=== PATIENT | male | born 1955 | race Caucasian/White ===

== ENCOUNTER 2022-09-11 16:54 | Emergency (ER) | payer OTHER, SELFPAY ==
[2022-09-11 16:56] VITALS: BP 134/86; PULSE 74; RESP 22; TEMP 36.8; O2SAT 95
--- NOTE | 2022-09-11 17:00 | RT.EKG_ITS ---
APPROVED REPORT Exam: Resting ECG Reason for Exam: sob Patient Location: E HR:70 bpm ECG Measurements Heart Rate 70 AXIS AL 219 P 37 QRSd 131 QRS -64 QT 442 T 36 QTc 476 Conclusion Sinus rhythm...normal P axis, V-rate 60- 99 Borderline prolonged AL interval...AL >212, V-rate 50- 90 Right bundle branch block...QRSd>120, terminal axis(90,270)
[2022-09-11 17:59] LABS: Abs Immature Grans 0.02 10^3/uL (0.0-0.06); HGB 15.2 g/dL (13.5-17.5); MCH 28.6 pg (27.0-33.0); MCHC 33.8 % (32.0-36.0); MCV 85 fL (80-95); MPV 9.2 fL (8.0-11.0); Platelet Count 252 10^3/uL (130-400); RBC 5.32 10^6/uL (4.36-5.78); RDW 12.1 % (11.8-14.1); WBC 7.08 10^3/uL (4.4-10.8)
[2022-09-11 18:14] LABS: Absolute Lymphocyte Count 1.91 10^3/uL (1.2-3.4); Absolute Monocyte Count 0.57 10^3/uL (0.1-0.8); Atypical Lymphocytes % 2; Bands % 2; Diff Comment Manual Differential; RBC Morphology Normal
[2022-09-11 18:23] LABS: ALT 25 U/L (16-63); AST 21 U/L (15-37); Albumin 3.7 g/dL (3.4-5.0); Alkaline Phosphatase 92 U/L (46-116); Anion Gap 8.9 mmol/L (3-11); BUN 18 mg/dL (7-18); Bilirubin, Total 0.4 mg/dL (0.2-1.0); CO2 27.1 mmol/L (21.0-32.0); Calcium 8.5 mg/dL (8.5-10.1); Chloride 102 mmol/L (98-107); Estimated GFR 83.52 (mL/min/1.73m2); Glucose 131 mg/dL (74-106); Potassium 3.8 mmol/L (3.5-5.1); Sodium 138 mmol/L (136-145); Total Protein 7.6 g/dL (6.4-8.2); Troponin I < 50 ng/L (<or=60)
[2022-09-11 18:31] LABS: COVID-19 PCR Negative (Negative); Influenza A PCR Negative (Negative); Influenza B PCR Negative (Negative)
[2022-09-11 18:32] LABS: RSV PCR Positive (Negative); Source Nasopharynx
[2022-09-11 18:33] VITALS: TEMP 36.8
[2022-09-11] MEDS: methylPREDNISolone SUCC 125 MG VIAL IVP (18:33)
--- NOTE | 2022-09-11 18:45 | DI.RAD_ITS ---
Exam(s) XR CHEST 2V PA LATERAL EXAM: XR CHEST 2V PA LATERAL CLINICAL HISTORY: cough TECHNIQUE: 2D digital imaging was performed of the chest. Two images were obtained. PA and lateral views were obtained. COMPARISON: No exams were available for comparison FINDINGS: MEDIASTINUM: Normal. HEART: Normal. PULMONARY VASCULATURE: Normal. LUNGS: No focal consolidating infiltrates. PLEURAL SPACE: No pleural effusion or pneumothorax. BONE:Within normal limits for the patient's age. There are old healed left rib fractures. OTHER FINDINGS:Normal. IMPRESSION: No acute pulmonary findings. DATA REPOSITORY: RADIATION DOSE DELIVERED:
--- NOTE | 2022-09-11 18:52 | DI.VRAD_ITS ---
PROCEDURE INFORMATION: Exam: XR Chest Exam date and time: 09/11/2022 6:43 PM Age: 67 years old Clinical indication: Patient HX: Cough x 7days. TECHNIQUE: Imaging protocol: Radiologic exam of the chest. Views: 2 views. COMPARISON: No relevant prior studies available. FINDINGS: Lungs: Chronic interstitial prominence. No consolidation. Pleural spaces: Unremarkable. No pleural effusion. No pneumothorax. Heart/Mediastinum: Unremarkable. No cardiomegaly. Bones/joints: Unremarkable. IMPRESSION: No acute findings. Dictated and Authenticated by: Paramjit Nicole MD. Ordering:ALEX Britt MD
[2022-09-11] MEDS: Albuterol/Ipratropium 3 ML UPD VIAL UPD ×2 (19:01→19:05)
[2022-09-11] MEDS: Normal Saline 500 ML IV (19:03)
--- NOTE | 2022-09-11 19:06 | ED.GENADUL_ITS ---
Discharge Plan Disposition Patient Disposition: Home Condition: Improving Discharge Details Clinical Impression: Asthma exacerbation, Respiratory syncytial virus (RSV) Primary Care Provider: Dolores,Local ED Provider: Balwinder Kaur Home Meds and New Rx's Prescriptions: New benzonatate 200 mg capsule 200 mg PO TID PRN (Reason: cough) Qty: 30 0RF prednisone 20 mg tablet 40 mg PO DAILY Qty: 8 0RF Continued citalopram 10 MG tablet 10 mg PO DAILY omeprazole 20 MG capsule,delayed release(DR/EC) 20 mg PO DAILY Serevent Diskus 1 PUFF blister with device 1 ea Inhalation BID PRN albuterol sulfate [ProAir HFA] 8.5 GM HFA aerosol inhaler 2 puff Inhalation PRN PRN celecoxib [Celebrex] 100 MG capsule 100 mg PO DAILY erythromycin 1 GM ointment 3.5 gm Ophthalmic QID Qty: 1 0RF Rx Instructions: 4/day right eye 5 days aspirin 81 mg Capsule,Delayed Release(Dr/Ec) 81 mg PO DAILY trazodone 50 mg Tablet 50 mg DAILY melatonin 5 mg Tablet 5 mg DAILY Discharge Instructions Instructions: Asthma (ED) Additional Instructions: It is very important during viral illness that you stay well-hydrated and get plenty of rest. Please continue to use your albuterol inhaler 2 puffs every 2-4 hours as needed for chest tightness. Please start the prescribed steroids tomorrow morning and take as directed. If you develop any new or significant worsening of symptoms return to the emergency department for reassessment otherwise follow-up with primary care provider if not improving in the next week. Referrals: Primary Care Provider [Outside] - 1 week (If not improving) Medical Decision Making Patient presenting to the emergency department for chief complaint of cold symptoms for 1 week chest tightness and some wheezing. Patient does state significant history of asthma with daily medication use. Denies any new fever chills, productive cough, and states more that symptoms just are not improving but denies any worsening of condition. Physical exam shows unremarkable HEENT and cardiac exam but patient does have diminished lung sounds throughout with mild expiratory wheezing also throughout nonfocal. Given patient's age we will check labs including EKG along with chest x-ray. I suspect viral illness so we will perform viral pathogen panel. Pending results we will give some fluids, steroids, and DuoNeb Please see physician interpretation for full interpretation of EKG but patient is in sinus rhythm, rate of 70, does have a right bundle vani block but does not meet acute ischemic criteria. Patient does deny any chest pain. Review of labs show an unremarkable CBC with no leukocytosis or shift, CMP is also unremarkable except for glucose of 131, negative troponin. Patient is positive for RSV negative for COVID and influenza. Chest x-ray reviewed along with radiologist interpretation that shows no acute focal infiltrate or cons olidation. Reassessed patient after DuoNeb's and patient had significant improvement and stated almost near resolution of his symptoms. With risk assessment of his lungs he did have diffuse wheezing that remained but did have improved breath sounds. Will place patient on outpatient steroids, continue use of patient's albuterol inhaler that he already has and encourage continued hydration. We will also prescribe benzonatate to see if this helps with patient's cough. He was encouraged to return for new or worsening symptoms otherwise follow-up with primary care provider.. After discussion of diagnosis and plan of care patient has no further needs, questions, or concerns and states clear understanding to return to the emergency department for any worsening symptoms. This documentation was generated using [employer] dictation system, please disregard any oddities of phrase or misspellings. Imaging Data Radiologic Study: Imaging: X-Ray Radiologist's impression: PROCEDURE INFORMATION: Exam: XR Chest Exam date and time: 09/11/2022 6:43 PM Age: 67 years old Clinical indication: Patient HX: Cough x 7days. TECHNIQUE: Imaging protocol: Radiologic exam of the chest. Views: 2 views. COMPARISON: No relevant prior studies available. FINDINGS: Lungs: Chronic interstitial prominence. No consolidation. Pleural spaces: Unremarkable. No pleural effusion. No pneumothorax. Heart/Mediastinum: Unremarkable. No cardiomegaly. Bones/joints: Unremarkable. IMPRESSION: No acute findings. Lab Data Lab results reviewed: Yes I reviewed the patient's lab results. Sign Out No HPI General Mode of arrival: ambulatory . Date/Time Provider Initiated Documentation: 09/11/22 16:56 . Limitations to Documentation: no limitations . Information obtained by: patient and RN notes reviewed . History of Present Illness 67 year old M presents to the emergency department with the chief complaint of cough chest tightness, described as moderate, Quality is described as aching, and is localized to the chest. Patient started experiencing this week(s) (1) and it has been constant. No relieving factors improve symptom(s), No exacerbating factors reported . Patient notes malaise; denies fever/chills. Patient did receive the following treatments prior to arrival, none Related Data Home Medications Medication Instructions Recorded Confirmed albuterol sulfate 90 mcg/actuation 2 puff inhalation PRN PRN 12/16/15 09/11/22 aerosol inhaler (ProAir HFA) celecoxib 100 mg capsule (Celebrex) 100 mg PO DAILY 12/16/15 09/11/22 citalopram 10 mg tablet 10 mg PO DAILY 12/16/15 09/11/22 erythromycin 5 mg/gram (0.5 %) eye 3.5 gm ophthalmic (eye) QID #1 tube 12/16/15 ointment omeprazole 20 mg capsule,delayed 20 mg PO DAILY 12/16/15 09/11/22 release salmeterol 50 mcg/dose blister 1 ea inhalation BID PRN 12/16/15 09/11/22 powder for inhalation (Serevent Diskus) aspirin 81 mg capsule,delayed 81 mg PO DAILY 09/11/22 09/11/22 release benzonatate 200 mg capsule 200 mg PO TID PRN cough #30 caps 09/11/22 melatonin 5 mg tablet 5 mg DAILY 09/11/22 09/11/22 prednisone 20 mg tablet 40 mg PO DAILY #8 tabs 09/11/22 trazodone 50 mg tablet 50 mg DAILY 09/11/22 09/11/22 Previous Rx's Medication Instructions Recorded erythromycin 5 mg/gram (0.5 %) eye 3.5 gm ophthalmic (eye) QID #1 tube 12/16/15 ointment benzonatate 200 mg capsule 200 mg PO TID PRN cough #30 caps 09/11/22 prednisone 20 mg tablet 40 mg PO DAILY #8 tabs 09/11/22 Allergies Allergy/AdvReac Type Severity Reaction Status Date / Time No Known Allergies Allergy Unverified 12/16/15 08:27 General Stated Complaint: SOB EBONY: 3 Review of Systems Constitutional Constitutional: Denies chills, Denies fever(s), Denies headache(s) and Reports malaise ENT Ears, Nose, Mouth, and Throat: Denies dizziness, Denies headache(s), Denies nasal congestion, Denies nasal discharge, Denies sore throat and Denies throat swelling Cardiovascular Cardiovascular: Denies chest pain, Denies syncope and Reports dyspnea Respiratory Respiratory: Reports as per HPI, Reports chest congestion, Reports cough, Denies excessive phlegm production and Reports dyspnea Gastrointestinal Gastrointestinal: Denies abdominal pain, Denies diarrhea, Denies nausea and Denies vomiting Musculoskeletal Musculoskeletal: Denies myalgias Integumentary/Breasts Skin/Breast: Denies rash Neurologic Neurologic: Denies dizziness, Denies syncope and Denies headache(s) Allergic/Immunologic Allergic/Immunologic: Denies throat swelling PFSH All Active Problems (Updated 09/11/22 @ 20:33 by Balwinder Kaur NP) Asthma exacerbation (Acute) Respiratory syncytial virus (RSV) (Acute) Social History Smoking/Tobacco Use Status: Former Tobacco Use Smoking risk assessment performed?: Yes Alcohol Intake: current Alcohol Intake frequency: a few times a week Drug use: Never Substance use type: does not use Do you feel safe at home: Yes Do you feel safe in your relationship?: Yes Exam Const General: cooperative, comfortable and no acute distress Orientation: alert and awake [facility] Head: normal to inspection, normocephalic and atraumatic Ears: hearing grossly normal bilaterally General nose exam: external nose normal Face and sinus: no erythema Mouth: no muffled voice Neck Neck: normal visual inspection, full ROM, no meningeal signs, trachea midline and supple Resp Effort & Inspection: normal respiratory effort, able to speak in complete sentences and cough Quality of cough: dry Auscultation: diminished lung sounds bilaterally throughout and wheezes expiratory wheezes Cardio Rate: regular rate Rhythm: regular rhythm Heart Sounds: S1 normal, S2 normal, normal S1 and S2, no click, no gallops, no murmurs and no rubs Skin General skin exam: no rashes or lesions noted and dry skin (warm) Neuro General: patient alert, patient awake, patient oriented x3, gait normal and moves all extremities Cognition: normal cognition Speech: speech normal Course Vital Signs Vital signs: Vital Signs Temperature 36.8 C 09/11/22 16:56 Pulse 74 09/11/22 16:56 Respiratory Rate 22 09/11/22 16:56 Blood Pressure 134/86 09/11/22 16:56 Pulse Oximetry 95 09/11/22 16:56 Temperature 36.8 C 09/11/22 18:33 Temperature Source Oral 12/13/22 16:56 Pulse 74 09/11/22 16:56 Respiratory Rate 22 09/11/22 16:56 Respiratory Effort Labored 09/11/22 17:14 Respiratory Depth Normal 09/11/22 17:14 Respiratory Pattern Normal 09/11/22 17:14 Blood Pressure 134/86 09/11/22 16:56 Pulse Oximetry 95 09/11/22 16:56 Oxygen Delivery Method Room Air 09/11/22 16:56 Oxygen Flow Rate 0 09/11/22 16:56 Lab/Test Results Lab/Test Results: Laboratory Tests Range/Units 09/11/22 09/11/22 09/11/22 17:24 17:55 17:55 WBC (4.4-10.8) 10^3/uL 7.08 RBC (4.36-5.78) 10^6/uL 5.32 Hgb (13.5-17.5) g/dL 15.2 Hct (40.0-50.0) % 45.0 MCV (80-95) fL 85 MCH (27.0-33.0) pg 28.6 MCHC (32.0-36.0) % 33.8 RDW (11.8-14.1) % 12.1 Plt Count (130-400) 10^3/uL 252 MPV (8.0-11.0) fL 9.2 Immature Gran % 0.0 Neutrophils % 63.0 Band Neutrophils % 2 Lymphocytes % 25.0 Atypical Lymphs % 2 Monocytes % 8.0 Eosinophils % 0.0 Basophils % 0.0 Nucleated RBC % (0.0-0.3) % 0.0 Absolute Neutrophils (1.2-6.7) 10^3/uL 4.60 Absolute Lymphocytes (1.2-3.4) 10^3/uL 1.91 Absolute Monocytes (0.1-0.8) 10^3/uL 0.57 Absolute Eosinophils (0.0-0.7) 10^3/uL 0.00 Absolute Basophils (0.0-0.2) 10^3/uL 0.00 RBC Morphology Normal Sodium (136-145) mmol/L 138 Potassium (3.5-5.1) mmol/L 3.8 Chloride (98-107) mmol/L 102 Carbon Dioxide (21.0-32.0) mmol/L 27.1 Anion Gap (3-11) mmol/L 8.9 BUN (7-18) mg/dL 18 Creatinine (0.70-1.30) mg/dL 1.0 Est GFR (CKD-EPI 2020) (mL/min/1.73m2) 83.52 Glucose (74-106) mg/dL 131 H Calcium (8.5-10.1) mg/dL 8.5 Magnesium (1.8-2.4) mg/dL 2.0 Total Bilirubin (0.2-1.0) mg/dL 0.4 AST (15-37) U/L 21 ALT (16-63) U/L 25 Alkaline Phosphatase (46-116) U/L 92 Troponin I (<or=60) ng/L < 50 Total Protein (6.4-8.2) g/dL 7.6 Albumin (3.4-5.0) g/dL 3.7 COVID-19 Source Nasopharynx SARS-CoV-2 (PCR) (Negative) Negative Influenza Type A (PCR) (Negative) Negative Influenza Type B (PCR) (Negative) Negative RSV (PCR) (Negative) Positive A*
[2022-09-11] MEDS: Benzonatate 100 MG CAP PO (20:37)
[2022-09-11 20:53] VITALS: BP 138/81; PULSE 99; RESP 20; TEMP 37.2; O2SAT 94
== END 2022-09-11 20:55 | disposition home or self-care (01) ==
PROVIDERS: Emergency Provider Nurse Practitioner Family
DX: J45.901 Unspecified asthma with (acute) exacerbation (principal); B97.4 Respiratory syncytial virus as the cause of diseases classified elsewhere; I45.10 Unspecified right bundle-branch block; Z79.82 Long term (current) use of aspirin; Z20.822 Contact with and (suspected) exposure to COVID-19; Z79.899 Other long term (current) drug therapy
CPT/HCPCS: 80053; 87637; 93005; 94640; 96361; 96374; 99284; 71046; 83735; 84484; 85025; 93010; 99285; J2930; J7620

== ENCOUNTER 2023-08-07 11:58 | Emergency (ER) | payer OTHER, SELFPAY ==
[2023-08-07 12:00] VITALS: BP 133/82; PULSE 65; RESP 18; TEMP 36.6; O2SAT 95
--- NOTE | 2023-08-07 12:07 | W.ED.GENAD ---
Discharge Plan Disposition Patient Disposition: Home Condition: Stable Discharge Details Clinical Impression: Biceps tendon rupture Primary Care Provider: Dolores,Local ED Provider: Lino Caro Home Meds and New Rx's Prescriptions: Continued citalopram 10 MG tablet 10 mg PO DAILY omeprazole 20 MG capsule,delayed release(DR/EC) 20 mg PO DAILY Serevent Diskus 1 PUFF blister with device 1 ea Inhalation BID PRN albuterol sulfate [ProAir HFA] 8.5 GM HFA aerosol inhaler 2 puff Inhalation PRN PRN celecoxib [Celebrex] 100 MG capsule 100 mg PO DAILY diazepam 2 mg tablet 2 mg PO DAILY aspirin 81 mg Capsule,Delayed Release(Dr/Ec) 81 mg PO DAILY trazodone 50 mg Tablet 50 mg PO DAILY melatonin 5 mg Tablet 5 mg PO DAILY prednisone 20 mg tablet 40 mg PO DAILY Qty: 8 0RF Discharge Instructions Instructions: Tendon Rupture (ED) Additional Instructions: You were seen in the emergency department for your injury to your bicep days ago throwing something across your yard, there is a palpable defect where the biceps tendon inserts into the antecubital space of the elbow and I think you have a biceps tendon rupture. This would be definitively diagnosed by an MRI ordered by orthopedics had an outpatient visit. We are providing you with a sling to use, you may use this as needed and apply ice to the area for pain relief, you can take Tylenol and ibuprofen as needed for pain. Please remove your sling many times throughout the day to perform pendulum exercises as we discussed. Please return to the emergency department for any severe increase in swelling of your forearm or complete numbness or skin or temperature changes of your forearm. Referrals: [facility] [Provider Group] [facility] [Outside] [facility] [Outside] Discharge Data Discharge Date/Time-TO BE ENTERED AT DEPARTURE: 08/07/23 12:45 Medical Decision Making This dictation utilizes [id number] dictation software and may contain unedited grammatical errors. 68 y/o M, R-hand dominant, presents to ED today with a chief complaint of threw a hose across the yard days ago, felt something give-out- now having pain and weakness in bicep area with mild bruising. Onset and characteristics include days onset, weakened upper arm strength, no focal swelling, no unilateral arm swelling, no petechiae distally, NV intact. Patient has relevant history of R rotator cuff issues. Family and social history: noncontributory. Pertinent exam findings / vital signs include palpable defect at the insertion of the biceps tendon in the antecubital space with possible biceps tendon rupture, this is consistent with where his bruising is any is no signs distal of swelling or vascular pathology, neurovascularly intact in the entire right upper extremity.. Differential / pathologies of concern include Biceps Tendon Rupture, Sprain, NOT Fracture, NOT N/V Compromise, NOT DVT. Diagnostic studies of: -none - palpable defect at tendon insertion, likely needs MRI by orthopaedic visit, [facility] Interventions of: -sling. ED Course: Patient has acute uncomplicated orthopedic injury with systemic involvement, no acute events in ED. Findings not consistent with fracture, DVT, superficial thrombophlebitis, neurovascular compromise. The patient likely has a tendon rupture of the biceps. Disposition of Biceps Tendon Rupture. Assessment/Plan: Counseled the patient on likely biceps tendon rupture and the need for orthopedic visit for definitive diagnosis by MRI. The patient is comfortable with pain and states he was not likely take Tylenol or ibuprofen. Did provide him with a sling but counseled him on removing the sling and performing pendulum exercises many times per day to prevent frozen shoulder.. Patient verbalized understanding of the plan and return to ED criteria and engaged in shared decision making. Medical Records Medical records reviewed: Yes I reviewed the patient's medical records. HPI General Date/Time Provider Initiated Documentation: 08/07/23 12:07. HPI Narrative: 68 year-old male presents to ED today by POV/ambulating with his , [facility], with a chief complaint of R bicep pain, with developing bruise with onset 4-5 days ago after throwing a hose across the yard, felt something give out- but no pain until the next day- concerned he tore something. Quality described as pain with any lifting, weakness to bicep muscle, no radiation to numbness/tingling, unilateral arm swelling, focal nodular swelling, patient endorses chronic R rotator cuff issues. Severity is described as 3-4/10. Palliating factors include nothing specific attempted. Provoking factors include nothing specific. Events leading up to the incident/Associated Symptoms: Patient is R-hand dominant, no history of blood clots. Patient not anticoagulated. Related Data Home Medications Medication Instructions Recorded Confirmed albuterol sulfate 90 mcg/actuation 2 puff inhalation PRN PRN 12/16/15 08/07/23 aerosol inhaler (ProAir HFA) celecoxib 100 mg capsule (Celebrex) 100 mg PO DAILY 12/16/15 08/07/23 citalopram 10 mg tablet 10 mg PO DAILY 12/16/15 08/07/23 omeprazole 20 mg capsule,delayed 20 mg PO DAILY 12/16/15 08/07/23 release salmeterol 50 mcg/dose blister 1 ea inhalation BID PRN 12/16/15 08/07/23 powder for inhalation (Serevent Diskus) aspirin 81 mg capsule,delayed 81 mg PO DAILY 09/11/22 08/07/23 release melatonin 5 mg tablet 5 mg PO DAILY 09/11/22 08/07/23 prednisone 20 mg tablet 40 mg (2 x 20 mg) PO DAILY #8 tabs 09/11/22 08/07/23 trazodone 50 mg tablet 50 mg PO DAILY 09/11/22 08/07/23 diazepam 2 mg tablet 2 mg PO DAILY 08/07/23 08/07/23 Previous Rx's Medication Instructions Recorded prednisone 20 mg tablet 40 mg (2 x 20 mg) PO DAILY #8 tabs 09/11/22 Allergies Allergy/AdvReac Type Severity Reaction Status Date / Time No Known Allergies Allergy Unverified 08/07/23 12:10 General Stated Complaint: Orthopedic EBONY: 4 Review of Systems All systems reviewed & are unremarkable except as noted in HPI and below PFSH All Active Problems (Updated 08/07/23 @ 12:32 by XAVI Han) Biceps tendon rupture (Acute) Social History Smoking/Tobacco Use Status: Former Tobacco Use Smoking risk assessment performed?: Yes Alcohol Intake: current Alcohol Intake frequency: a few times a week Drug use: Never Substance use type: does not use Housing: house Do you feel safe at home: Yes Do you feel safe in your relationship?: Yes Exam Narrative Exam Narrative: GENERAL APPEARANCE: Well-nourished, non-toxic, awake and alert, atraumatic, no acute distress. SKIN: Warm, pink, dry, intact, without rashes/lesions/ulcerations. HEAD: Normocephalic, atraumatic, normal hair distribution for gender/age. EYES: Pupils PERRLA, EOMs intact without nystagmus, normal conjunctiva, no exudates on lids/lashes. ENT: Nares patent, no circumoral cyanosis, no facial swelling NECK: Supple, trachea midline, painless cervical ROM. LUNGS/CHEST: Non-labored respirations, normal A/P diameter, symmetrical expansion, no chest wall deformity HEART (CV/PV): Regular rate, R radial pulse 2+, no peripheral edema, no JVD. ABDOMEN: Soft, non-distended, no guarding. MSK: Normal ROM, no swelling/deformity to bilateral UEs or LEs, moving all extremities without weakness, no cyanosis, spine midline without tenderness, normal curvature. R UE: Tenderness to palpation in the right bicep muscle, there is a palpable defect at the insertion of the biceps tendon at the antecubital space, he has weakness to lifting light objects and some mild bruising at the distal bicep area of the upper arm, there is no significant pain in the forearm, no focal nodular swelling, he is neurovascularly intact in the distal right hand, no signs of superficial thrombophlebitis or DVT of upper extremity. NEURO: Mental Status AAOx4 - alert to person, place, time, events No facial droop, no forehead involvement. Motor: No focal weakness - strength 5/5 in bilateral UEs and LEs, proximal and distal, symmetric. Sensory: sensation intact to light touch globally. Gait normal: patient ambulated without ataxia into ED room. PSYCH: euthymic, cooperative, pleasant, appropriate speech Course Vital Signs Vital signs: Vital Signs Temperature 36.6 C 08/07/23 12:00 Pulse 65 08/07/23 12:00 Respiratory Rate 18 08/07/23 12:00 Blood Pressure 133/82 08/07/23 12:00 Pulse Oximetry 95 08/07/23 12:00 Temperature 36.6 C 08/07/23 12:00 Temperature Source Oral 08/07/23 12:00 Pulse 65 08/07/23 12:00 Respiratory Rate 18 08/07/23 12:00 Blood Pressure 133/82 08/07/23 12:00 Blood Pressure Position Sitting 08/07/23 12:00 Pulse Oximetry 95 08/07/23 12:00 Oxygen Delivery Method Room Air 08/07/23 12:00 Oxygen Flow Rate 0 08/07/23 12:00 Pain Level 0 08/07/23 12:00
== END 2023-08-07 12:45 | disposition home or self-care (01) ==
PROVIDERS: Emergency Provider Physician Assistant
DX: M79.621 Pain in right upper arm (principal); S46.211A Strain of muscle, fascia and tendon of other parts of biceps, right arm, initial encounter
CPT/HCPCS: 99282

== ENCOUNTER 2023-08-20 15:34 | Outpatient (CLI) | payer OTHER, SELFPAY ==
--- NOTE | 2023-08-20 14:30 | DI.RAD_ITS ---
Exam(s) XR ELBOW RT COMPLETE EXAM: XR ELBOW RT COMPLETE CLINICAL HISTORY: RIGHT ELBOW PAIN. TECHNIQUE: 2D digital imaging was performed of the left elbow. Three images were obtained. AP, lat eral and oblique views were obtained. COMPARISON: No exams were available for comparison FINDINGS: BONES: No acute fracture is present. No bony destructive lesion is seen. There is an enthesophyte at the triceps insertion site. JOINTS: The elbow is normally aligned. No joint effusion is seen. Small osteophytes are seen around t he elbow joint. SOFT TISSUE: Normal. IMPRESSION: 1. No acute abnormality. 2. Mild degenerative changes are seen in the elbow. DATA REPOSITORY: RADIATION DOSE DELIVERED:
== END 2023-08-20 15:35 | disposition home or self-care (01) ==
LOC: DIORS 15:34
PROVIDERS: Visit Provider Student in an Organized Health Care Education/Training Program
DX: M25.521 Pain in right elbow (principal)
CPT/HCPCS: 73080

== ENCOUNTER → 2023-08-29 00:59 | Outpatient (CLI) | payer OTHER, SELFPAY ==
--- NOTE | 2023-08-29 07:20 | DI.MRI_ITS ---
Exam(s) MR UPPER JOINT RT WO EXAM: MR UPPER JOINT RT WO CLINICAL HISTORY: ? high-grade distal biceps tendon tear,[id number],S46.211a,traumatic rupt TECHNIQUE: Multiplanar multisequence MRI was performed without intravenous contrast. COMPARISON: CR XR ELBOW RT COMPLETE from 08/20/2023 FINDINGS: MARROW: There is no evidence of fracture, bone contusion, nor ominous osseous lesions. ELBOW JOINT: Is mild amount of increased fluid in the elbow joint.No significant cartilage loss nor o steochondral defect and there is no evidence of loose intra-articular body. There are no osteophytes . EPICONDYLES: No intraosseous signal abnormality in the medial lateral epicondyles. There is mild inc reased signal evident in the common flexor tendon adjacent to the medial epicondyle; may represent el ement of mild epicondylitis. This is subtle. Similar findings are not seen on the opposite-lateral epicondyle side. ULNAR COLLATERAL LIGAMENT: The anterior band which extends from the medial epicondyle to the sublime tubercle of the coronoid process of the ulna is intact. This structure is the strongest ligament in t he elbow and is the main opponent to severe valgus stress. RADIAL COLLATERAL LIGAMENT: Intact TENDONS: There is some intrasubstance signal abnormality in the distal most aspect of the biceps tendon at the insertion upon the radial tuberosity. However, there is no full-thickness tear of this structure. No retraction. The brachialis tendon is intact. The triceps tendon is intact. CUBITAL TUNNEL/ULNAR NERVE: The ulnar nerve appears unremarkable beneath the cubital tunnel retinacul um/ arcuate ligament and posterior to the medial epicondyle. There is no evidence of arthritic spur arising from the epicondyle nor olecranon causing impingement on the ulnar nerve. There is no eviden ce of accessory anconeus muscle causing impingement at this level. There is also no evidence of soft tissue mass nor ganglia on cyst causing impingement at this level. OTHER FINDINGS: Small amount of fluid noted in the olecranon bursa. IMPRESSION: 1. There is some increased signal noted within the distal most biceps tendon at its insertion onto th e radial tuberosity. However, there is is no full-thickness tear/detachment of this structure from t he radial tuberosity insertion site. 2. Mild findings in the common flexor tendon which may indicate mild medial epicondylitis. There is, however, no abnormal intraosseous signal in the medial epicondyle at this level. 3. Mild edema and fluid in the olecranon bursa region. No prominent swelling. No abnormal intraoss eous signal in the olecranon fossa. DATA REPOSITORY:
== END ==
PROVIDERS: Visit Provider Student in an Organized Health Care Education/Training Program
DX: M70.21 Olecranon bursitis, right elbow (principal); M25.521 Pain in right elbow
CPT/HCPCS: 73221

== ENCOUNTER → 2023-09-04 01:32 | Outpatient (CLI) | payer OTHER, SELFPAY ==
--- NOTE | 2023-09-04 08:15 | DI.MRI_ITS ---
Exam(s) MR UPPER JOINT RT WO EXAM: MR UPPER JOINT RT WO CLINICAL HISTORY: ? high-grade distal biceps tendon tear,STRAIN,S46.211A. TECHNIQUE: Multiplanar multisequence MRI was performed. COMPARISON: None. FINDINGS: Exam is limited by patient body habitus. Sagittal images show suboptimal positioning. BONES: There is no fracture or contusion pattern. JOINTS:The acromioclavicular joint shows hypertrophic changes and some fluid within the joint space. Spurring at the undersurface of the acromion the glenohumeral joint shows a small amount of fluid.. TENDONS: Supraspinatus: Full-thickness tear with retraction to the level of the glenoid. Infraspinatus: Unremarkable. Subscapularis: Unremarkable. [place]: Unremarkable. Biceps and [place]: Full-thickness tear with retraction of the biceps tendon with large amount of surr ounding fluid. MUSCLES: Supraspinatus and infraspinatus muscle atrophy. GLENOID LABRUM: Unremarkable on this noncontrast examination. SOFT TISSUES: Unremarkable. OTHER: Subacromial and subdeltoid bursae . IMPRESSION: Full-thickness tear and retraction of the supraspinatus tendon. Full-thickness tear and severe retraction of the biceps tendon with large amount of surrounding flui d. DATA REPOSITORY:
== END ==
PROVIDERS: Visit Provider Student in an Organized Health Care Education/Training Program
DX: M75.121 Complete rotator cuff tear or rupture of right shoulder, not specified as traumatic (principal); S46.211A Strain of muscle, fascia and tendon of other parts of biceps, right arm, initial encounter; X58.XXXA Exposure to other specified factors, initial encounter
CPT/HCPCS: 73221

== ENCOUNTER 2023-12-30 15:23 | Outpatient (CLI) | payer OTHER, SELFPAY ==
--- NOTE | 2023-12-30 10:00 | DI.RAD_ITS ---
Exam(s) XR KNEE RT 3V AP,LAT,LUCY EXAM: XR KNEE RT 3V AP,LAT,LUCY CLINICAL HISTORY: BILATERAL KNEE PAIN. TECHNIQUE: 2D digital imaging was performed of the right knee. Three views obtained. AP, lateral an d PA tunnel views were obtained. COMPARISON: No priors for comparison FINDINGS: BONES: No acute fracture is present. No bony destructive lesion is seen. There is a well corticated d ensity at the superior aspect of the patella. This appears old. JOINTS: There is marked narrowing of the medial femoral tibial joint and moderate narrowing of the pa tellofemoral joint. Osteophytes are seen involving all 3 joint compartments. There is a small joint effusion. SOFT TISSUE: Normal. IMPRESSION: Marked arthrosis of the right knee. DATA REPOSITORY: RADIATION DOSE DELIVERED:
--- NOTE | 2023-12-30 10:00 | DI.RAD_ITS ---
Exam(s) XR KNEE LT 3V AP,LAT,LUCY EXAM: XR KNEE LT 3V AP,LAT,LUCY CLINICAL HISTORY: BILATERAL KNEE PAIN. TECHNIQUE: 2D digital imaging was performed of the left knee. Three images were obtained. AP, late ral and PA tunnel views were obtained. COMPARISON: No priors for comparison FINDINGS: BONES: No acute fracture is present. No bony destructive lesion is seen. JOINTS: There is marked narrowing of the medial femoral tibial joint. There is also marked narrowing of the patellofemoral joint. There osteophytes in all 3 joint compartments. There is a small joint effusion. There is a density superior to the patellofemoral joint which may represent a loose body. SOFT TISSUE: Normal. IMPRESSION: Marked arthrosis of the left knee. DATA REPOSITORY: RADIATION DOSE DELIVERED:
== END 2023-12-30 15:24 | disposition home or self-care (01) ==
LOC: DIORS 15:23
PROVIDERS: Visit Provider Student in an Organized Health Care Education/Training Program
DX: M25.561 Pain in right knee (principal); M25.562 Pain in left knee
CPT/HCPCS: 73562

== ENCOUNTER 2024-03-17 04:59 | Outpatient (CLI) | payer OTHER, SELFPAY ==
[2024-03-17 14:26] LABS: HCT 44.9 % (40.0-50.0); HGB 15.1 g/dL (13.5-17.5); MCH 29.6 pg (27.0-33.0); MCHC 33.6 % (32.0-36.0); MCV 88 fL (80-95); MPV 9.5 fL (8.0-11.0); Platelet Count 278 10^3/uL (130-400); RDW 12.4 % (11.8-14.1); WBC 8.97 10^3/uL (4.4-10.8)
[2024-03-17 15:06] LABS: Anion Gap 6.6 mmol/L (3-11); BUN 15 mg/dL (7-18); CO2 30.4 mmol/L (21.0-32.0); CREATININE 0.9 mg/dL (0.70-1.30); Chloride 105 mmol/L (98-107); Estimated GFR 94.19 (mL/min/1.73m2); Glucose 92 mg/dL (74-106); Potassium 4.2 mmol/L (3.5-5.1); Sodium 142 mmol/L (136-145)
== END 2024-03-17 05:00 | disposition home or self-care (01) ==
LOC: LBO 04:59
PROVIDERS: Visit Provider Student in an Organized Health Care Education/Training Program
DX: M17.0 Bilateral primary osteoarthritis of knee (principal); Z01.818 Encounter for other preprocedural examination
CPT/HCPCS: 36415; 80048; 85027

== ENCOUNTER 2024-03-17 14:40 | Outpatient (CLI) | payer OTHER, SELFPAY ==
--- NOTE | 2024-03-17 13:00 | DI.RAD_ITS ---
Exam(s) XR KNEE LT 1V XR STANDING ALIGNMENT XR KNEE RT 1V EXAM: XR STANDING ALIGNMENT CLINICAL HISTORY: OA BILATERAL KNEES. TECHNIQUE: 2D digital imaging was performed. Standing AP views were performed from the pelvis throu gh the ankles. COMPARISON: CR XR KNEE LT 3V AP,LAT,LUCY from 12/30/2023 CR XR KNEE RT 3V AP,LAT,LUCY from 12/30/2023 CR XR KNEE LT 1V from 03/17/2024 CR XR KNEE RT 1V from 03/17/2024 FINDINGS: BONES: No acute fracture is present. No bony destructive lesion is seen. Leg length discrepancy: The left femoral head projects a few millimeter superior to the right. JOINTS: Knees: Severe narrowing of the medial femoral tibial joint spaces bilaterally. Bilateral carline us angulation. The ankle joints are unremarkable. The hip joints are unremarkable. SOFT TISSUE: Normal. IMPRESSION: Severe degenerative changes of the medial femoral tibial compartments of both knees.. Minimal overall leg length discrepancy. DATA REPOSITORY: RADIATION DOSE DELIVERED:
== END 2024-03-17 14:41 | disposition home or self-care (01) ==
LOC: DIORS 14:46
PROVIDERS: Visit Provider Physician Assistant
DX: M17.0 Bilateral primary osteoarthritis of knee (principal)
CPT/HCPCS: 73560; 77073

== ENCOUNTER 2024-04-01 07:23 | Observation (INO) | payer OTHER, SELFPAY ==
[2024-04-01] VITALS (40 sets, daily range): BP systolic 107–172; BP diastolic 55–89; PULSE 55–94; RESP 15–28; TEMP 35.5–36.7; O2SAT 92–99; BMI 42.0
[2024-04-01] MEDS: Celecoxib 200 MG CAP 400 MG PO (07:56)
[2024-04-01] MEDS: Gabapentin 300 MG CAP PO ×2 (07:56→20:31)
[2024-04-01] MEDS: Acetaminophen 500 MG TAB 1000 MG PO ×3 (07:56→20:30)
[2024-04-01] MEDS: Lactated Ringers 1,000 ML 80 ML IV ×3 (08:07→22:21)
--- NOTE | 2024-04-01 08:27 | ANES.PREOP_ITS ---
General Info Date of Service Date Performed: 04/01/24 Height: 5 ft 7 in Weight: 121.6 kg Body Mass Index (BMI): 42.0 Surgical Procedure: Operation Date: 04/01/24 09:35 Proposed Procedure Side Surgeon p Knee Total Arthroplasty Bilateral, Cementless CR Bilateral Luciano Gilbert MD Meds Allergies and Home Medications Allergies Allergy/AdvReac Type Severity Reaction Status Date / Time atorvastatin Allergy Other (See Verified 04/01/24 07:52 Comment) Home Medication Medication Instructions Recorded albuterol sulfate 90 mcg/actuation 2 puff inhalation PRN PRN 12/16/15 aerosol inhaler (ProAir HFA) omeprazole 20 mg capsule,delayed 20 mg PO DAILY 12/16/15 release trazodone 50 mg tablet 50 mg PO HS 09/11/22 cholecalciferol (vitamin D3) 75 25 mcg PO DAILY 10/08/23 mcg (3,000 unit) tablet carboxymethylcellulose sodium 0.5 1 drp ophthalmic (eye) HS 11/13/23 % eye drops celecoxib 200 mg capsule (Celebrex) 200 mg PO DAILY 11/13/23 fluticasone propionate 50 1 spray intranasal DAILY 11/13/23 mcg/actuation nasal spray,suspension (Allergy Relief (fluticasone)) melatonin 5 mg tablet 10 mg PO HS 11/13/23 cyclobenzaprine 10 mg tablet 10 mg PO HS 12/30/23 gabapentin 300 mg capsule 300 mg PO BID 12/30/23 duloxetine 30 mg capsule,delayed 60 mg PO DAILY 03/17/24 release Current Visit Medications: Current Medications Generic Name Dose Route Start Last Admin Trade Name Fredrickq PRN Reason Stop Dose Admin Acetaminophen 1,000 mg 04/01/24 06:00 Acetaminophen 500 Mg Tab PO 04/01/24 16:00 PREOP [facility] Acetaminophen 1,000 mg 04/01/24 08:30 Acetaminophen 500 Mg Tab PO 05/01/24 08:29 TID PENDING SALE TO [facility] Aspirin 81 mg 04/01/24 20:00 Aspirin E.C. 81 Mg Tabec PO 05/01/24 19:59 BID PENDING SALE TO [facility] Celecoxib 400 mg 04/01/24 06:00 Celecoxib 200 Mg Cap PO 04/01/24 16:00 PREOP [place] Celecoxib 200 mg 04/01/24 20:00 Celecoxib 200 Mg Cap PO 05/01/24 19:59 BID PENDING SALE TO [facility] Dexamethasone 4 mg 04/02/24 08:00 Dexamethasone 4 Mg Tab PO 04/02/24 08:31 DAILY [place] Docusate Sodium 100 mg 04/01/24 07:23 Docusate Sodium 100 Mg Cap PO 05/01/24 07:22 BID PRN PRN Constipation Droperidol 0.625 mg 04/01/24 08:26 Droperidol 5 Mg/2 Ml Vial IVP 05/01/24 08:25 DIRECTED PRN Nausea Ephedrine Sulfate 0 mg 04/01/24 08:26 Ephedrine 25 Mg/5 Ml Syringe IVP 05/01/24 08:25 DIRECTED PRN Fentanyl 0 mcg 04/01/24 08:26 Fentanyl 100 Mcg/2 Ml Vial IVP 05/01/24 08:25 DIRECTED PRN Gabapentin 300 mg 04/01/24 06:00 Gabapentin 300 Mg Cap PO 04/01/24 16:00 PREOP [place] Gabapentin 300 mg 04/01/24 20:00 Gabapentin 300 Mg Cap PO 05/01/24 20:00 HS PENDING SALE TO [facility] Hydromorphone HCl 0 mg 04/01/24 08:26 Hydromorphone 2 Mg/Ml Syr IVP 05/01/24 08:25 DIRECTED PRN Ringer's Solution 1,000 mls @ 80 mls/hr 04/01/24 06:00 IV 04/30/24 23:59 INFUSION PENDING SALE TO [facility] Cefazolin Sodium 3,000 mg/ 100 mls @ 200 mls/hr 04/01/24 06:00 Sodium Chloride IVPB 04/01/24 16:00 PREOP [place] Tranexamic Acid/Sodium Chloride 1,000 mg in 100 mls @ 600 mls/hr 04/01/24 06:00 IVPB 04/01/24 16:00 PREOP [place] Tranexamic Acid/Sodium Chloride 1,000 mg in 100 mls @ 600 mls/hr 04/01/24 06:00 IVPB 04/01/24 16:00 TODAY PENDING SALE TO [facility] Cefazolin Sodium/Dextrose 1 gm in 50 mls @ 100 mls/hr 04/01/24 08:00 Ancef Duplex IVPB 04/02/24 00:29 Q8H [place] IV Miscellaneous Supplies 1 each 04/01/24 06:00 Iv Access IV 04/30/24 23:59 DIRECTED [place] Naloxone HCl 0 mg 04/01/24 08:26 Naloxone 0.4 Mg/Ml Vial IVP 05/01/24 08:25 PRN PRN Ondansetron HCl 4 mg 04/01/24 07:23 Ondansetron 4 Mg/2 Ml Vial IVP 05/01/24 07:22 Q6H PRN PRN Nausea Oxycodone HCl 0 mg 04/01/24 07:23 Oxycodone 5 Mg Tab PO 05/01/24 07:22 Q3H PRN PRN Pain Pantoprazole Sodium 40 mg 04/01/24 07:30 Pantoprazole 40 Mg Tabcr PO 05/01/24 07:29 DAILY@0730 [place] Polyethylene Glycol 17 gm 04/01/24 07:23 Polyethylene Glycol 3350 17 Gm Packet PO 05/01/24 07:22 BID PRN PRN Constipation Sodium Chloride 0 ml 04/01/24 06:00 Normal Saline Flush 10 Ml Syr IV 04/30/24 23:59 PRN PRN Sodium Chloride 0 ml 04/01/24 06:00 Normal Saline 10 Ml Vial IJ 04/30/24 23:59 DIRECTED PRN Sterile Water 0 ml 04/01/24 06:00 Water,Injection,Sterile 10 Ml Vial IJ 04/30/24 23:59 DIRECTED PRN PFSH Active Problems Active Problems: Problem Status Onset Code COPD (chronic obstructive pulmonary disease) J44.9 Arthritis of left knee M17.12 Arthritis of right knee M17.11 SANDRA (obstructive sleep apnea) G47.33 Obesity E66.9 Peripheral neuropathy G62.9 Asthma J45.909 Rupture of right proximal biceps tendon S46.211A Rotator cuff tear, right M75.101 Traumatic rupture of right distal biceps tendon ~08/03/23 S46.211A Medical History Medical History Vitamin D deficiency GERD (gastroesophageal reflux disease) Anxiety Depression Allergic rhinitis Surgical History Surgical History H/O eye surgery bilat Carpal tunnel syndrome on right Fracture of thumb, right, closed History of bariatric surgery (2013) gastric sleeve Tobacco Smoking/Tobacco Use Status: Former Tobacco Use Alcohol Alcohol Intake: current Alcohol intake frequency: a few times a week Substance Use Substance use: Never Substance use type: does not use Vital Signs and Lab Results Vital Signs Most Recent Vital Signs in EMR: Most Recent Vital Signs Temp Pulse Resp BP Pulse Ox 36.4 C L 63 16 126/70 94 04/01/24 07:42 04/01/24 07:42 04/01/24 07:42 04/01/24 07:42 04/01/24 07:42 Lab Results Blood Type / Crossmatch: No Data to Display Complete Blood Count: White Blood Count 8.97 10^3/uL (4.4-10.8) 03/17/24 14:20 Red Blood Count 5.10 10^6/uL (4.36-5.78) 03/17/24 14:20 Hemoglobin 15.1 g/dL (13.5-17.5) 03/17/24 14:20 Hematocrit 44.9 % (40.0-50.0) 03/17/24 14:20 Platelet Count 278 10^3/uL (130-400) 03/17/24 14:20 Complete Metabolic Panel: Sodium 142 mmol/L (136-145) 03/17/24 14:20 Potassium 4.2 mmol/L (3.5-5.1) 03/17/24 14:20 Chloride 105 mmol/L (98-107) 03/17/24 14:20 Carbon Dioxide 30.4 mmol/L (21.0-32.0) 03/17/24 14:20 BUN 15 mg/dL (7-18) 03/17/24 14:20 Creatinine 0.9 mg/dL (0.70-1.30) 03/17/24 14:20 Est GFR (CKD-EPI 2020) 94.19 (mL/min/1.73m2) 03/17/24 14:20 Calcium 9.0 mg/dL (8.5-10.1) 03/17/24 14:20 Glucose 92 mg/dL (74-106) 03/17/24 14:20 Liver Function Panel: No Data to Display Coagulation Panel: No Data to Display Cardiac Panel: No Data to Display Arterial Blood Gas: No Data to Display Venous Blood Gas: No Data to Display Pancreas Panel: No Data to Display Thyroid Panel: No Data to Display Infectious Disease: No Data to Display Blood Cultures: No Data to Display Toxicology Panel: No Data to Display Anesthesia Assessment and Plan Anesthesia History Personal History: No History of Anesthesia Complications Family History: No Family History of Anesthesia Complications Exercise Tolerance Exercise Tolerance: Metabolic Equivalents>4 Pertinent Negatives Pertinent Negatives: No Symptoms of GERD (RX treatment) Cardiac & Pulmonary Exam Cardiac Exam: Normal S1/S2 Heart Sounds Pulmonary Exam: Clear Bilateral Breath Sounds Implantable Cardiac Device Does patient have a Pacemaker or an ICD?: No Airway Exam Known Difficult Airway: No Mallampati Class: 3 Mouth Opening: Normal (> 3cm) Thyromental Distance: Greater than 3 cm Neck Range of Motion: Full ROM Neck Circumference: Thick Teeth Condition: Generalized Poor Dentition ASA Classification ASA Score: ASA 2 Emergency Case?: No NPO Status NPO Status: NPO Clears >2 hours, Solids >8 hours Anesthesia Plan Resuscitation Status: Full Code Anesthesia Technique: Spinal Anesthesia Airway Planned: Natural Airway Pain Management: Surgeon and patient request nerve block Monitors Used: Standard Monitors
[2024-04-01] MEDS: ceFAZolin 3,000 MG in Normal Saline 100 ML 200 MG IVPB (09:25)
[2024-04-01] MEDS: TRANEXAMIC ACID/SOD. CHL. 1,000 MG/100 ML BAG 600 MG IVPB ×2 (09:45→10:50)
--- NOTE | 2024-04-01 10:22 | W.ANESNERVE ---
Nerve Block Single Injection Procedure Date and Time Date Performed: 04/01/24 Procedure Start: 09:01 Location Where Procedure Performed Procedure Location: Day Surgery Unit Reason Performed: Postoperative Analgesia Requesting Provider: Luciano Gilbert Timeout Performed Timeout Performed: Yes Monitoring Used ECG, Blood Pressure, SpO2 and See EMR for corresponding vital signs Sterility Sterility: Hand Hygiene, Surgical Cap, Surgical Mask, Eye Protection and Chlorhexidine Sedation Given During Procedure Sedation Given (Indicate Dose Given): Versed IV Dose:: 3mg IVP Patient Mental Status Patient Mental Status: Sedate with meaningful communication Nerve Block 1st Nerve Block: Laterality: Right Block Type: Adductor Canal Ultrasound Image Saved?: Yes Needle / Catheter Used: 100mm SonoPlex II Local Anesthetic Bolus (Indicate Dose Given): Lidocaine used for local infiltration of skin, Injected in 3-5ml increments after negative blood aspiration, Bupivacaine 0.5% Dose:: 0.5%/15cc (75mg) and Exparel Dose:: 1.33%/5cc (65mg) Additives (Indicate Dose Given): Epinephrine to make 1:200,000 (5mcg/ml) Dose:: 100mcg and Decadron Dose:: 5mg PF Ultrasound: Sterile probe cover and gel used Nerve Stimulator: Not Used Paresthesia: None Procedure Tolerated: No Complications and Patient tolerated well Procedure Outcome: Successful Performed By: Renan Maya 2nd Nerve Block: Laterality: Left Block Type: Adductor Canal Ultrasound Image Saved?: Yes Needle / Catheter Used: 100mm SonoPlex II Local Anesthetic Bolus (Indicate Dose Given): Lidocaine used for local infiltration of skin, Injected in 3-5ml increments after negative blood aspiration, Bupivacaine 0.5% Dose:: 0.5%/15cc (75mg) and Exparel Dose:: 1.33%/5cc (65mg) Additives (Indicate Dose Given): Epinephrine to make 1:200,000 (5mcg/ml) Dose:: 100mcg and Decadron Dose:: 5mg PF Ultrasound: Sterile probe cover and gel used Nerve Stimulator: Not Used Paresthesia: None Procedure Tolerated: No Complications and Patient tolerated well Procedure Outcome: Successful Performed By: Renan Maya
--- NOTE | 2024-04-01 13:43 | W.ANESPOSTOP ---
Postoperative Evaluation Date, Time and Location Date Performed: 04/01/24 Time Performed: 13:44 Patient Location: PACU Vital Signs Most Recent Imported Vital Signs: Most Recent Vital Signs Temp Pulse Resp BP Pulse Ox 36.4 C L 60 26 H 134/78 92 04/01/24 13:30 04/01/24 13:36 04/01/24 13:36 04/01/24 13:36 04/01/24 13:36 Pain Score Most Recent Pain Score: Most Recent Pain Score Pain Level 0 04/01/24 09:09 Assessment Mental Status: Arousable with meaningful communication Airway and Respiratory Function: Patent airway with normal (patient baseline) respiratory exam Cardiovascular Function: Hemodynamically Stable Hydration Status: Adequately Hydrated Nausea & Vomiting: No Nausea or Vomiting Pain: Pain is tolerable per patient Peripheral Nerve Block: Regional nerve block not resolved at time of post operative discharge
--- NOTE | 2024-04-01 15:33 | IN_ITS ---
PT Notes Visit Reasons: B/L TKR Physical Therapy Inpatient Initial Evaluation Date: 04/01/2024 Referring Doctor: XAVI Sousa PT Orders: PT CONSULT: S/P ortho Surgery Precautions: Per Dr. Gilbert, WBAT on BLE with AD. Patient Profile/Admitting Diagnosis: Louie is a 69-year-old male with degenerative joint disease of bilateral knees and is status post bilateral total knee arthroplasties on postoperative day 0. PMHX: Medical History (Updated 03/17/24 @ 13:35 by Melia Horowitz) Vitamin D deficiency GERD (gastroesophageal reflux disease) Anxiety Depression Allergic rhinitis Surgical History (Updated 03/17/24 @ 13:35 by Melia Horowitz) Carpal tunnel syndrome on right Fracture of thumb, right, closed History of bariatric surgery (2013) gastric sleeve Social History/Home Situation: Patient lives with in a private home with 6 steps to enter with a rail. Independent with all mobility ADLs although has had increasing difficulty due to arthritis in B knees. Equipment Owned/DME: None Subjective: Moderate lightheadedness subsided with short in-room ambulation. Objective: General Observation: resting in bed. anusha present in room throughout session. LORENA wraps to B Le. Cryocuff to B knees. Mental Status: Drowsy but oriented as to person, place, time, and purpose. Able to pay attention, focus, and respond appropriately. Pain: Moderate pain in B knees during movement transition Vital Signs: Closely monitored by nursing staff ROM: Right Lower Extremity: Hip flexion WFL. Hip abduction WFL. Knee flexion 20 degrees to 90 degrees. Knee extension -20 degrees. Ankle dorsiflexion WFL. Ankle plantarflexion WFL. Left Lower Extremity: Hip flexion WFL. Hip abduction WFL. Knee flexion 20 degrees to 90 degrees. Knee extension -20 degrees. Ankle dorsiflexion WFL. Ankle plantarflexion WFL. Strength: Right Lower Extremity: Hip flexors 4-/5. Hip abductors 4-/5. Knee flexors 3-/5. Knee extensors 3-/5. Ankle dorsiflexors 4-/5. Ankle plantarflexors 4-/5. Left Lower Extremity: Hip flexors 4-/5. Hip abductors 4-/5. Knee flexors 3-/5. Knee extensors 3-/5. Ankle dorsiflexors 4-/5. Ankle plantarflexors 4-/5. Bed Mobility/Transfers: Moderate cueing provided for use of B hands as needed for support, movement sequence, AD management, and posture to reduce fall risk and minimize pain report Supine to sit minimal assist of 2 with HOB at about 30 degrees, patient reported sudden onset lightheadedness right after sitting up Sit to stand minimal assist of 2 with edge of bed raised about 22 inches form floor, FWW used Stand to sit minimal assist of 1 Bed to reclining chair minimal assist of 2 Gait: 12 steps from edge of bed to bedside recliner using front-wheeld walker with minimal assist of 2, Nurse Jovan assisting with for safety. Step-to gait pattern, gait wide-based, knee flexion on B sides decreased. Moderate cueing provided for safe gait pattern, AD management, and proper weight distribution to minimize pain level. No LOB. No SOB. Lightheadedness did not worsen duirng the short walk and subsided after sitting on bedside recliner. Balance: Static Sitting: Good Dynamic Sitting: Fair Static Standing: Fair Dynamic Standing: Fair Special Tests: Mobility Limitations Standardized Measure [facility] AM-PAC 6 clicks Basic Mobility Inpatient Short Form: Raw Score: 18 CMS Score: 47% deficit Informed Consent/Education: Patient was instructed in purpose of PT consult and plan of care. Agreeable to proceed with established PT POC to achieve personal goals. Trained patient with correct performance of exercises below to maximize motor control, joint flexibility, soft tissue extensibility of the B knee musculature: Access Code: [email or web address] URL: [email or web address] Date: 04/01/2023 Prepared by: Heidi Zeng Exercises - Supine Quad Set - 1 x daily - 7 x weekly - 1 sets - 10 reps - 5 hold - Supine Heel Slide - 1 x daily - 7 x weekly - 1 sets - 10 reps - 5 hold - Supine Ankle Pumps - 1 x daily - 7 x weekly - 1 sets - 10 reps - 5 hold - Small Range Straight Leg Raise - 1 x daily - 7 x weekly - 1 sets - 10 reps - 5 hold DEFERRED due to pain level - Seated November - 1 x daily - 7 x weekly - 1 sets - 10 reps - 5 hold Assessment: Drowsy but managed to complete short mobility assessment. Lightheaded initially but subsided with movement. Needed minimal assist of 2 to get up from edge of bed that was raised about 22 inches from floor to minimize pain in B knees. Patient presents with clinical signs and symptoms consistent with current/admitting diagnoses that have resulted to mobility limitations, gait instability, generalized weakness, and overall ADL decline as demonstrated by the following impairment level findings: 1. Decreased strength to B knee major muscle groups 2. Impaired sitting/standing balance 3. Impaired activity tolerance 4. Limitation of joint range of motion in B knees 5. Pain in B knees Impairments are contributing to the following functional limitations: 1. Decline in bed mobility skills 2. Decline in transfer skills 3. Difficulty with ambulation without assistive device and physical assistance 4. Increased completion time for mobility ADL performance 5. Increased risk for falls 6. Difficulty with managing steps alone safely Patient is assessed as a 52306 moderate complexity based on the following: History: 69-year-old male with past medical history as indicated above Examination: Demonstrable impairment in strength, balance, and mobility level with underlying impairments and functional limitations as exhibited above as well as deficit score of 47% utilizing the [facility] Mobility Inpatient Short Form Presentation: Evolving Decision Makin moderate complexity Goals: Goals X1 week 1. Supine-Sit independent 2. Sit-Supine independent 3. Sit-Stand independent 4. Stand-Sit independent with FWW 5. Bed-Chair independent with FWW 6. Chair-Bed independent with FWW 7. Independent gait on level surface with use of FWW for at least 300 feet without report of pain nor dyspnea 8. Independent stair negotiation while holding onto 1 rails for at least 6 steps without report of pain nor dyspnea 9. Independent with home exercise program 10. Good static and dynamic standing balance/tolerance Plan of Care/Treatment Plan: 1-2x/day, 7 days/week x 1 week. Plan of care has been reviewed with the [employer] providing the service under Physical Therapy direction. Initiate Physical Therapy intervention for pain management as needed, strengthening, bed mobility, transfers, gait, stairs, balance training, and use of assistive device. -Progress mobility level with FWW, perform stairs training, and review HEP. Provide copy of HEP for patient. DISCHARGE RECOMMENDATIONS: Home when medically cleared by orthopedic surgeon. Recommend outpatient PT services in order to optimize functional mobility outcomes and facilitate return to independent community ambulation without an assistive device. TREATMENT CODE/TIME: 09130 x 20 minutes for 1 unit, 38923 x 18 minutes for 1 unit (15:33-16:11). Thank you for the opportunity to participate in the care of this patient. Heidi Zeng PT, DPT, CLT [facility] [place], [place]
--- NOTE | 2024-04-01 16:21 | ROE_ITS ---
Date of service: 04/01/24 Time of Service: 09:45 Operative Note Operative Note DATE OF PROCEDURE: 04/01/24 PRE-OP DIAGNOSIS: Bilateral Knee Arthritis POST-OP DIAGNOSIS: same PROCEDURE: Bilateral Knee Arthroplasty SURGEON: Luciano Gilbert UNIVERSITY PROFESSOR: Celia Kang ANESTHESIA TYPE: General LMA/ETT Refer to Anesthesia Record ESTIMATED BLOOD LOSS: 600 PATHOLOGY: none sent COMPLICATIONS: None Patient was transported to: PACU Patient's condition: stable Implants: LEFT: 1. Depuy Attune Cementless Cruciate Retaining Femoral Component, Size 7 2. Depuy Attune Cementless Fixed Bearing Tibial Component, Size 6 3. Depuy Attune 7x6 CR/FB Poly 4. Depuy Attune Patellar Component, Size 35 RIGHT: 1. Depuy Attune Cementless Cruciate Retaining Femoral Component, Size 7 2. Depuy Attune Cementless Fixed Bearing Tibial Component, Size 6 3. Depuy Attune 7x8 CR/FB Poly 4. Depuy Attune Patellar Component, Size 38 Indications: I have seen Louie in clinic for symptoms of knee arthritis, confirmed with radiographic findings. He has exhausted nonoperative methods and was having significant limitations in daily function and desired better function and less pain. I discussed the technical details of a knee replacement. I explained the risks of the procedure to include, but not limited to, bleeding, infection, pain, stiffness, fracture, damage to nerves and vessels, damage to muscles and tendons, loosening, need for repeat procedure, blood clot and cardiopulmonary demise. Despite these risks, Louie elected to proceed. Findings: There was significant arthritis throughout both knees involving all compartments. There was also notable synovitis biltaerally with a large effusion. Procedure Description: Louie was greeted in the preoperative holding area where the correct side was identified and marked. The consent was reviewed with the patient and signed. The history and physical was updated. All questions were answered. Preo perative medications were administered: Acetaminophen 1000mg, Celebrex 400mg, and Gabapentin 300mg. An adductor canal block was then administered by the anesthesia team in the D[facility]. Louie was taken back to the operating room. A spinal anesthestic was then attempted but unsuccessful and thus converted to a general. The patient was placed into the supine position on the operating room table. A nonsterile tourniquet was placed high onto the leg but only used for cementing. Posts were placed for positioning during the procedure. All bony prominences were well padded. Prophylactic antibiotics in the form of Cefazolin were administered. 1g of Tranxemic Acid was given intravenously within 30 minutes of incision. Both legs were then prepped with Chloraprep and draped in a standard fashion with impervious stockinette. A second prep with Chloraprep was performed prior to application of Iodine impregnated skin protection. A timeout to confirm correct identity, side and site, procedure, allergies, anesthesia, and medical concerns was performed. RIGHT KNEE: With the knee in some flexion, a midline incision was made overlying the knee. Full thickness skin flaps were raised once the extensor mechanism was encountered. These were raised medially and laterally. Any bleeding was controlled with electrocautery. Once the extensor mechanism was fully exposed, a medial parapatellar arthrotomy was performed in a flexed position. All bleeding from the arthrotomy and the geniculate arteries was coagulated. A medial subperiosteal peel was performed with electrocautery to the midcoronal plane. Due to the significant varus deformity the entire medial tibial plateau was exposed. The fat pad was removed while keeping the patellar tendon protected. The anterior distal femur synovium was removed for later visualization. The ACL and PCL were resected and the anterior horn of the lateral meniscus was transected. The knee was then flexed with the patella everted. Large osteophytes from the tibia were removed. Large osteophytes from the femur were removed. Using a step drill, and based on preoperative templating, the femoral canal was entered. This was done with a step drill without any difficulty. The intramedullary distal femoral cut guide was inserted, set to a 5 degree valgus cut and 9mm cut thickness. The distal femoral cut guide was then held in position and pinned. With the soft tissues protected, the distal cut was performed. This was passed over a few times to ensure a planar cut. I then turned attention to the tibia. The extramedullary guide was placed onto the leg. The distal aspect was slid medial to adjust for position of center of ankle and stay in line with shaft of the tibia. Approximately 3-5 degrees of posterior slope was kept in the proximal cutting guide. The center of the guide was aligned with the PCL. The stylus was used to assess cut thickness. The medial side, most involved side, was set for a 4mm cut. This was then held in position and pinned into place with 2 additional pins and a cross pin for stability. The medial and lateral collateral ligaments were protected and the cut was performed. With this completed, it was assessed and noted to be of appropriate dimensions. The guide was removed. A spacer block was inserted and the knee was brought into extension. The 7mm spacer block provided full extension, without hyperextension and with stability of both the medial and lateral collateral ligaments was assessed. The pins from the femur and the tibia were then removed. The distal femur was then sized. The anterior stylus was placed onto the lateral ridge of the anterior femur. This indicated a size 7 femur. The external rotation of the guide was adjusted to 3 degrees to match the epicondylar axis, perpendicular to [place]?s line. The 4-in-1 cutting guide was the placed. The posterior medial femur cut was evaluated and appeared of good thickness. The spacer block was inserted underneath the cutting guide and stability was confirmed in 90 degrees of flexion. An sophie wing was used to confirm appropriate position of the anterior cut to avoid notching. This cutting guide was ensured to be flush on the cut surface and then pinned into place with headed pins. While protecting the soft tissues, quad tendon, and collateral ligaments, the anterior and posterior cuts were performed with a saw. The central two pins were removed and the posterior and anterior chamfers were cut next. The notch-cutting guide was placed. This was pinned to lateralize the femoral component as much as possible while keeping it flush on the cut surface. This was then pinned into position. A reciprocating saw was used to make the notch cut. A rasp smoothed the cut surfaces. The medial and lateral menisci were removed. A trial femoral component was then inserted, impacted down to the cut surfaces, and the lug holes were drilled. A provisional trial tibial component was placed and the knee was brought through range of motion. The polyethylene was trialed until there was good flexion and extension with excellent stability to the medial and lateral collaterals. The patella was tracking without thumbs. A size 8mm polyethylene component provided the best range of motion and stability with less than 2mm gapping with medial and lateral stress and full extension without significant hyperextension. The tibial cut surface was fully exposed. The tibia was then sized as a 6. The tibia had been previously marked during trialing to correspond to the center of the tibial component to help with rotation. The trial was aligned to this celia, approximately rotated to the medial 1/3rd of the tibial tubercle. The trial was pinned into place. The tibia was prepared with a reamer and a keel punch and lug holes. The knee was then brought into extension and the patella was measured as 26mm. Using the patellar clamp and cut guide, this was resected to a flat surface with at least 13mm of thickness remaining. The size 38 patella fit the best. This was oriented and then clamped into position. The lugs were drilled. The trial components were removed. The final components were opened on the back table. The periosteal and capsular tissues, especially posteriorly, around the knee were then systematically injected with a periarticular cocktail consisting of 246mg of Ropivacaine, 0.5mg of Epinephrine, 0.08mg of Clonidine, and 30mg of Ketorolac, diluted to 100cc and split between the two knees. On the back table, with the implants opened, the cement was mixed. One batch of high viscosity cement was prepared with vacuum assistance. After the cement was ready a small amount was placed on the cut surface of the patella and the hassan llar button was clamped into position and held. While the cement was hardening, the cementless knee components were placed. Starting with the tibial component, the tibia was subluxed anteriorly and the lug holes of the component were lined up. The tibia was then impacted with an impactor and mallet until the tibial component was in contact with the tibia. The final polyethylene component was i nserted. Then, the femoral component was inserted. The lug holes were aligned and the component was impacted into position. The knee was irrigated with Surgiphor Betadine solution. This was allowed to sit in the knee for 3 minutes and then it was irrigated out with saline. After the cement had finally cured, approximately 15min, the clamp was removed from the patella and the knee was taken through range of motion. The patella was tracking with a no-thumbs technique. The capsule was then reapproximated with a No. 1 Vicryl at multiple locations. The capsule was finally closed with a No. 2 Stratafix, barbed suture. The second dosing of 1g TXA was started. Deep tissues were then reapproximated with 0 Vicryl and 2-0 Vicryl. The skin was closed with a running 3-0 Monocryl in a subcuticular fashion. LEFT KNEE: With the knee in some flexion, a midline incision was made overlying the knee. Full thickness skin flaps were raised once the extensor mechanism was encountered. These were raised medially and laterally. Any bleeding was controlled with electrocautery. Once the extensor mechanism was fully exposed, a medial parapatellar arthrotomy was performed in a flexed position. All bleeding from the arthrotomy and the geniculate arteries was coagulated. A medial subperiosteal peel was performed with electrocautery to the midcoronal plane. The fat pad was removed while keeping the patellar tendon protected. The anterior distal femur synovium was removed for later visualization. The ACL and PCL were resected and the anterior horn of the lateral meniscus was transected. The knee was then flexed with the patella everted. Large osteophytes from the tibia were removed. Large osteophytes from the femur were removed. Using a step drill, and based on preoperative templating, the femoral canal was entered. This was done with a step drill without any difficulty. The intramedullary distal femoral cut guide was inserted, set to a 5 degree valgus cut and 9mm cut thickness. The distal femoral cut guide was then held in position and pinned. With the soft tissues protected, the distal cut was performed. This was passed over a few times to ensure a planar cut. I then turned attention to the tibia. The extramedullary guide was placed onto the leg. The distal aspect was slid medial to adjust for position of center of ankle and stay in line with shaft of the tibia. Approximately 3-5 degrees of posterior slope was kept in the proximal cutting guide. The center of the guide was aligned with the PCL. The stylus was used to assess cut thickness. The medial side, most involved side, was set for a 4mm cut. This was then held in position and pinned into place with 2 additional pins and a cross pin for stability. The medial and lateral collateral ligaments were protected and the cut was performed. With this completed, it was assessed and noted to be of appropriate dimensions. The guide was removed. A spacer block was inserted and the knee was brought into extension. The 6mm spacer block provided full extension, without hyperextension and with stability of both the medial and lateral collateral ligaments was assessed. The pins from the femur and the tibia were then removed. The distal femur was then sized. The anterior stylus was placed onto the lateral ridge of the anterior femur. This indicated a size 7 femur. The external rotation of the guide was adjusted to 0 degrees to match the epicondylar axis, perpendicular to [place]?s line. The 4-in-1 cutting guide was the placed. The posterior medial femur cut was evaluated and appeared of good thickness. The spacer block was inserted underneath the cutting guide and stability was confirmed in 90 degrees of flexion. An sophie wing was used to confirm appropriate position of the anterior cut to avoid notching. This cutting guide was ensured to be flush on the cut surface and then pinned into place with headed pins. While protecting the soft tissues, quad tendon, and collateral ligaments, the anterior and posterior cuts were performed with a saw. The central two pins were removed and the posterior and anterior chamfers were cut next. The notch-cutting guide was placed. This was pinned to lateralize the femoral component as much as possible while keeping it flush on the cut surface. This was then pinned into position. A reciprocating saw was used to make the notch cut. A rasp smoothed the cut surfaces. The medial and lateral menisci were removed. A trial femoral component was then inserted, impacted down to the cut surfaces, and the lug holes were drilled. A provisional trial tibial component was placed and the knee was brought through range of motion. There was noted to be excellent extension and flexion. There was no significant instability. The patella was tracking without thumbs. A size 6mm polyethylene component provided the best range of motion and stability with less than 2mm gapping with medial an d lateral stress and full extension without significant hyperextension. The tibial cut surface was fully exposed. The tibia was then sized as a 6. The tibia had been previously marked during trialing to correspond to the center of the tibial component to help with rotation. The trial was aligned to this celia, approximately rotated to the medial 1/3rd of the tibial tubercle. The trial was pinned into place. The tibia was prepared with a reamer and a keel punch and lug holes. The knee was then brought into extension and the patella was measured as 25mm. Using the patellar clamp and cut guide, this was resected to a flat surface with at least 13mm of thickness remaining. The size 35 patella fit the best. This was oriented and then clamped into position. The lugs were drilled. The trial components were removed. The final components were opened on the back table. The periosteal and capsular tissues, especially posteriorly, around the knee were then systematically injected with a periarticular cocktail consisting of 246mg of Ropivacaine, 0.5mg of Epinephrine, 0.08mg of Clonidine, and 30mg of Ketorolac, diluted to 100cc. On the back table, with the implants opened, the cement was mixed. One batch of high viscosity cement was prepared with vacuum assistance. After the cement was ready a small amount was placed on the cut surface of the patella and the patellar button was clamped into position and held. While the cement was hardening, the cementless knee components were placed. Starting with the tibial component, the tibia was subluxed anteriorly and the lug holes of the component were lined up. The tibia was then impacted with an impactor and mallet until the tibial component was in contact with the tibia. The final polyethylene component was inserted. Then, the femoral component was inserted. The lug holes were aligned and the component was impacted into position. The knee was irrigated with Surgiphor Betadine solution. This was allowed to sit in the knee for 3 minutes and then it was irrigated out with saline. After the cement had finally cured, approximately 15min, the clamp was removed from the patella and the knee was taken through range of motion. The patella was tracking with a no-thumbs technique. The capsule was then reapproximated with a No. 1 Vicryl at multiple locations. The capsule was finally closed with a No. 2 Stratafix, barbed suture. Deep tissues were then reapproximated with 0 Vicryl and 2-0 Vicryl. The skin was closed with a running 3-0 Monocryl in a subcuticular fashion. Both incisions were then reinforced with skin glue. A Mepilex silver dressing was applied along with a [id number] LORENA wrap to both knees. A CryoCuff was applied. Louie was transferred to the hospital bed without difficulty an suffering no apparent complication. Louie has a good prognosis. Physical therapy will start today and without restrictions, weight-bearing as tolerated. Aspirin 81mg BID will be used for D VT prophylaxis.
[2024-04-01] MEDS: ceFAZolin 1 GM/50 ML BAG IVPB (16:25)
--- NOTE | 2024-04-01 17:42 | RESPIRATORY ---
04/01/2024 Pt has home CPAP Min 15 Max 20 [facility]Med [facility] and is unsure of DME
[2024-04-01] MEDS: Aspirin E.C. 81 MG TABEC PO (20:30)
[2024-04-01] MEDS: Melatonin 3 MG TAB 9 MG PO (20:30)
[2024-04-01] MEDS: Celecoxib 200 MG CAP PO (20:31)
[2024-04-01] MEDS: traZODone 50 MG TAB PO (20:31)
[2024-04-02] MEDS: ceFAZolin 1 GM/50 ML BAG IVPB ×2 (00:17→08:47)
[2024-04-02 03:50] VITALS: BP 120/66; PULSE 68; RESP 18; TEMP 36.8; O2SAT 94
[2024-04-02 07:04] LABS: HCT 36.9 % (40.0-50.0); HGB 12.5 g/dL (13.5-17.5); MCH 29.7 pg (27.0-33.0); MCHC 33.9 % (32.0-36.0); MCV 88 fL (80-95); MPV 9.6 fL (8.0-11.0); Platelet Count 251 10^3/uL (130-400); RBC 4.21 10^6/uL (4.36-5.78); RDW 12.2 % (11.8-14.1); RDW-SD 39.6 fL; WBC 14.95 10^3/uL (4.4-10.8)
[2024-04-02 07:25] LABS: Anion Gap 6.4 mmol/L (3-11); BUN 18 mg/dL (7-18); CO2 28.6 mmol/L (21.0-32.0); CREATININE 0.9 mg/dL (0.70-1.30); Calcium 8.5 mg/dL (8.5-10.1); Chloride 106 mmol/L (98-107); Estimated GFR 93.61 (mL/min/1.73m2); Glucose 122 mg/dL (74-106); Sodium 141 mmol/L (136-145)
[2024-04-02 07:27] VITALS: BP 117/70; PULSE 66; RESP 17; TEMP 36.8; O2SAT 97
[2024-04-02] MEDS: Aspirin E.C. 81 MG TABEC PO (08:48)
[2024-04-02] MEDS: Omeprazole 20 MG CAPCR PO (08:48)
[2024-04-02] MEDS: DULoxetine 30 MG CAP 60 MG PO (08:48)
[2024-04-02] MEDS: Acetaminophen 500 MG TAB 1000 MG PO (08:48)
[2024-04-02] MEDS: Celecoxib 200 MG CAP PO (08:49)
[2024-04-02] MEDS: Gabapentin 300 MG CAP PO (08:49)
[2024-04-02] MEDS: Cholecalciferol (Vitamin D3) 1,000 UNIT TAB 1000 UNITS PO (08:49)
[2024-04-02] MEDS: Dexamethasone 4 MG TAB PO (08:49)
--- NOTE | 2024-04-02 09:13 | W.PM.DSUDISC ---
Date of service: 04/01/24 Time of Service: 07:26 Discharge Plan Disposition Patient Disposition: Home Condition: Good Discharge Details Reason For Visit: B/L TKR Attending Provider: Luciano Gilbert Primary Care Provider: [facility] Home Meds and New Rx's Prescriptions: No Action duloxetine 30 mg capsule,delayed release(DR/EC) 60 mg PO DAILY cholecalciferol (vitamin D3) 75 mcg (3,000 unit) tablet 25 mcg PO DAILY cyclobenzaprine 10 mg tablet 10 mg PO HS carboxymethylcellulose sodium 0.5 % drops 1 drp ophthalmic (eye) HS celecoxib [Celebrex] 200 mg capsule 200 mg PO DAILY fluticasone propionate [Allergy Relief (fluticasone)] 50 mcg/actuation spray,suspension 1 spray intranasal DAILY Rx Instructions: administer into each nostril melatonin 5 mg tablet 10 mg PO HS gabapentin 300 mg capsule 300 mg PO BID omeprazole 20 MG capsule,delayed release(DR/EC) 20 mg PO DAILY albuterol sulfate [ProAir HFA] 8.5 GM HFA aerosol inhaler 2 puff Inhalation PRN PRN trazodone 50 mg Tablet 50 mg PO HS Discharge Instructions Additional Instructions: Total Knee Discharge Instructions Activity: The most important activity is to walk and to work on gentle motion (both flexion and extension). You should try to take short walks a few times a day. It is important that when resting you work on keeping the knee straight. Avoid putting a pillow behind the knee as this will encourage flexion. Work on range of motion exercises as provided by Physical Therapy. - Start outpatient physical therapy within 2 weeks. - You should wear the PAM hose on both legs for 2 weeks. You may remove these at night. You may also use any compression sock in place of the PAM hose. - Utilize [employer] to review exercises, see videos on exercises and obtain basic information pertaining to your surgery and your recovery. Dressing: Remove the Duane wrap by 2 days after your surgery and put on the PAM stocking given to you from the hospital. Keep the surgical dressing (underneath the DUANE wrap) in place for at least one week. After the first week it may be removed and replaced with light gauze and tape or nothing. The wound and dressing may get wet after 3 days but avoid soaking the dressing or otherwise it will need to be changed. Many people prefer covering the dressing with cling wrap (saran wrap) to minimize it from getting soaked. If it gets wet, just pat dry. If it starts to peel off then it will need to be changed. Medications: - You should take Tylenol and anti-inflammatory Celebrex as your primary pain control medications. If the Celebrex is too expensive or not covered, please call the office for another alternative (Advil/Ibuprofen or Naproxen/Aleve) - You have been prescribed a stronger pain medication Oxycodone for breakthrough pain, take as needed as prescribed. - You have also been prescribed a stomach acid reduction agent Pantoprozole to help reduce stomach acid and reflux. - You have been prescribed Gabapentin to take at night for restlessness and nerve pain. - You will be taking Aspirin 81mg twice a day for DVT prevention unless instructed otherwise. - You have also been prescribed Decadron to take to control post-operative nausea and pain. You will start this tomorrow. - If you have constipation you should take Colace or Miralax (both [id number]). It takes most people 3-4 days to have a bowel movement. Follow-up: 2 weeks If you have any acute concerns or questions, please do not hesitate to contact the office at [phone]. You may contact Dr. Gilbert with any questions after hours through the hospital at [phone] or on his cell phone at [phone]. Stand Alone Forms: Anesthesia Discharge Inst., Kimberli.Nerve Block Instructions, Aram Villalta (DSU) Referrals: Luciano Gilbert MD [ [facility] STAFF PHYSICIAN] - 04/16/24 11:00 am Equipment/Supplies: Walker Activity:: Activity as Tolerated Shower/Bathe:: 72 hours Diet:: As Tolerated DS: Diagnosis Discharge Diagnosis (1) Arthritis of left knee: Status: Resolved (2) Arthritis of right knee: Status: Resolved
--- NOTE | 2024-04-02 09:58 | PT.INTREAT ---
PT Notes Visit Reasons: B/L TKR Inpatient Physical Therapy Treatment Note [facility] Date: 04/02/24 PRECAUTIONS:Standard SUBJECTIVE: Pt reports that he is ready to go home today. OBJECTIVE: Therapeutic Activities (24301h[3]): Direct one-on-one instruction in dynamic activities to improve functional performance. ? BED MOBILITY/TRANSFERS? Sit-supine: SBA ? Sit-stand: SBA? Stand-sit: SBA ? Provided skilled cues and instruction on performance and technique throughout. Gait Training (13890k[]): Direct one-on-one instruction and skilled instruction in: [X] Provided verbal cues for equipment management and technique [X] Provided instruction in gait pattern ? GAIT? Assistive Device: 4WW? Weight bearing: Full Assist: SBA? Distance:? From room 207 to PT room ? STAIRS:Clinic stairs utilizing one axillary crutch and on rail step to. ? Therapeutic Exercises (81772f[]): Direct one-on-one instruction in therapeutic exercises to develop strength, endurance, range of motion and flexibility. ? Exercises ? Reviewed HEP with PT and also completed AROM while in supine for knee flexion ROM to tolerance and slight assist with knee ext with most focus on the R LE. ? ASSESSMENT:? Pt was very motivated for PT and very safe with ambulation and transfers. PLAN: Pt will be discharged to his home with his this afternoon. TREATMENT CODE/TIME: 9:15-9:55 (40) TA x3
--- NOTE | 2024-04-02 10:18 | DSE_ITS ---
Date of service: 04/02/24 Time of Service: 09:50 DS: Diagnosis Discharge Diagnosis (1) Arthritis of left knee: Status: Resolved (2) Arthritis of right knee: Status: Resolved Discharge Plan Disposition Patient Disposition: Home Condition: Good Discharge Details Reason For Visit: B/L TKR Admit Date/Time: 04/01/24 07:23 Admit Provider: Luciano Gilbert Attending Provider: Luciano Gilbert Primary Care Provider: [place] Hospital Course Hospital Course: Total Knee Discharge Instructions Activity: The most important activity is to walk and to work on gentle motion (both flexion and extension). You should try to take short walks a few times a day. It is important that when resting you work on keeping the knee straight. Avoid putting a pillow behind the knee as this will encourage flexion. Work on range of motion exercises as provided by Physical Therapy. - Start outpatient physical therapy within 2 weeks. - You should wear the PAM hose on both legs for 2 weeks. You may remove these at night. You may also use any compression sock in place of the PAM hose. - Utilize [employer] to review exercises, see videos on exercises and obtain basic information pertaining to your surgery and your recovery. Dressing: Remove the Duane wrap by 2 days after your surgery and put on the PAM stocking given to you from the hospital. Keep the surgical dressing (underneath the DUANE wrap) in place for at least one week. After the first week it may be removed and replaced with light gauze and tape or nothing. The wound and dressing may get wet after 3 days but avoid soaking the dressing or otherwise it will need to be changed. Many people prefer covering the dressing with cling wrap (saran wrap) to minimize it from getting soaked. If it gets wet, just pat dry. If it starts to peel off then it will need to be changed. Medications: - You should take Tylenol and anti-inflammatory Celebrex as your primary pain control medications. If the Celebrex is too expensive or not covered, please call the office for another alternative (Advil/Ibuprofen or Naproxen/Aleve) - You have been prescribed a stronger pain medication Oxycodone for breakthrough pain, take as needed as prescribed. - You will continue a stomach acid reduction agent Omeprazole to help reduce stomach acid and reflux. - You will continue to take Gabapentin twice a day - You will be taking Aspirin 81mg twice a day for DVT prevention unless instructed otherwise. - You have also been prescribed Decadron to take to control post-operative nausea and pain. - If you have constipation you should take Colace or Miralax (both [id number]). It takes most people 3-4 days to have a bowel movement. Follow-up: 2 weeks If you have any acute concerns or questions, please do not hesitate to contact the office at [phone]. You may contact Dr. Gilbert with any questions after hours through the hospital at [phone] or on his cell phone at [phone]. Home Meds and New Rx's Prescriptions: New celecoxib 200 mg capsule 200 mg PO BID PRN (Reason: pain) Qty: 60 1RF aspirin 81 mg tablet,delayed release (DR/EC) 81 mg PO BID Qty: 60 0RF acetaminophen 500 mg tablet 1,000 mg PO Q8H PRN (Reason: pain) Qty: 90 3RF dexamethasone 4 mg tablet 4 mg PO DAILY Qty: 2 0RF Rx Instructions: Starting Post-Operative Day #1 (Day after surgery) oxycodone 5 mg tablet 5 mg PO Q4H PRNQty: 18 0RF Continued duloxetine 30 mg capsule,delayed release(DR/EC) 60 mg PO DAILY cholecalciferol (vitamin D3) 75 mcg (3,000 unit) tablet 25 mcg PO DAILY cyclobenzaprine 10 mg tablet 10 mg PO HS carboxymethylcellulose sodium 0.5 % drops 1 drp ophthalmic (eye) HS fluticasone propionate [Allergy Relief (fluticasone)] 50 mcg/actuation spray,suspension 1 spray intranasal DAILY Rx Instructions: administer into each nostril melatonin 5 mg tablet 10 mg PO HS gabapentin 300 mg capsule 300 mg PO BID omeprazole 20 MG capsule,delayed release(DR/EC) 20 mg PO DAILY albuterol sulfate [ProAir HFA] 8.5 GM HFA aerosol inhaler 2 puff Inhalation PRN PRN trazodone 50 mg Tablet 50 mg PO HS Discontinued celecoxib [Celebrex] 200 mg capsule 200 mg PO DAILY Discharge Instructions Additional Instructions: Total Knee Discharge Instructions Activity: The most important activity is to walk and to work on gentle motion (both flexion and extension). You should try to take short walks a few times a day. It is important that when resting you work on keeping the knee straight. Avoid putting a pillow behind the knee as this will encourage flexion. Work on range of motion exercises as provided by Physical Therapy. - Start outpatient physical therapy within 2 weeks. - You should wear the PAM hose on both legs for 2 weeks. You may remove these at night. You may also use any compression sock in place of the PAM hose. - Utilize [employer] to review exercises, see videos on exercises and obtain basic information pertaining to your surgery and your recovery. Dressing: Remove the Duane wrap by 2 days after your surgery and put on the PAM stocking given to you from the hospital. Keep the surgical dressing (underneath the DUANE wrap) in place for at least one week. After the first week it may be removed and replaced with light gauze and tape or nothing. The wound and dressing may get wet after 3 days but avoid soaking the dressing or otherwise it will need to be changed. Many people prefer covering the dressing with cling wrap (saran wrap) to minimize it from getting soaked. If it gets wet, just pat dry. If it starts to peel off then it will need to be changed. Medications: - You should take Tylenol and anti-inflammatory Celebrex as your primary pain control medications. If the Celebrex is too expensive or not covered, please call the office for another alternative (Advil/Ibuprofen or Naproxen/Aleve) - You have been prescribed a stronger pain medication Oxycodone for breakthrough pain, take as needed as prescribed. - You have also been prescribed a stomach acid reduction agent Pantoprozole to help reduce stomach acid and reflux. - You have been prescribed Gabapentin to take at night for restlessness and nerve pain. - You will be taking Aspirin 81mg twice a day for DVT prevention unless instructed otherwise. - You have also been prescribed Decadron to take to control post-operative nausea and pain. You will start this tomorrow. - If you have constipation you should take Colace or Miralax (both [id number]). It takes most people 3-4 days to have a bowel movement. Follow-up: 2 weeks If you have any acute concerns or questions, please do not hesitate to contact the office at [phone]. You may contact Dr. Gilbert with any questions after hours through the hospital at [phone] or on his cell phone at [phone]. Stand Alone Forms: Anesthesia Discharge Inst., [place].Nerve Block Instructions, Aram Villalta ([facility]) Referrals: Luciano Gilbert MD [ [facility] STAFF PHYSICIAN] - 04/16/24 11:00 am Activity:: Activity as Tolerated Equipment/Supplies:: Walker Diet:: As Tolerated Discharge Orders Discharge Orders: Discharge Order (Routine); Ordered 04/02/24 Ordered By: Luciano Gilbert DS: Summary Time Spent with Patient providing and/or coordinating discharge services: Less than 30 minutes Status at Discharge Functional status at discharge: uses cane/walker Overall status at discharge: patient is progressing back to baseline Mental Status: mental status grossly normal Speech and Movement: speech and movement normal Mood: congruent mood Affect: normal affect Quality:SDOH Health Related Social Needs: Health related social needs material hardship, food in security, transpo insecurity, personal safety Exam Narrative Exam Narrative: Sitting up in the bed. NAD. AAOx3 Evaluation of bilateral knees shows c/d/i dressings. +ADF/APF/EHL/FHL. SITL DP/SP/Tib. Psych Mental Status: mental status grossly normal Speech and Movement: speech and movement normal Mood: congruent mood Affect: normal affect DS: Data Vitals/I&O Vitals and I&O: Vital Signs Temperature 36.8 C 04/02/24 07:27 Temperature Source Temporal Artery Scan 04/02/24 07:27 Pulse 66 04/02/24 07:27 Pulse Rhythm Regular 04/01/24 19:55 Pulse 66 04/01/24 13:41 Respiratory Rate 17 04/02/24 07:27 Respiratory Effort Normal, Non-Labored 04/01/24 19:55 Respiratory Depth Normal 04/01/24 19:55 Respiratory Pattern Normal 04/01/24 19:55 Blood Pressure 117/70 04/02/24 07:27 Blood Pressure Mean 79 04/01/24 13:41 Blood Pressure Position Supine 04/01/24 09:09 Pulse Oximetry 97 04/02/24 07:27 Respiratory End-tidal CO2 39 04/01/24 13:41 Oxygen Delivery Method Room Air 04/02/24 07:27 Oxygen Flow Rate 0 04/02/24 07:27 Pain Level 4 07/04/24 08:48 Comment 09:14 LEFT block complete. VS taken, as above. Pt denies ringing in ears/metallic taste in mouth. Pt eyes closed. 09:20 H. Wheeler in room to transfer pt on stretcher to OR 04/01/24 09:09 Intake & Output 04/01/24 04/01/24 04/02/24 11:59 23:59 11:59 Intake Total 1300 / 2650 1350 / 2650 50 / 50 Output Total 600 / 1125 525 / 1125 Balance 700 / 1525 825 / 1525 50 / 50 Weight 121.6 kg 121.6 kg Intake: IV 1300 / 2350 1050 / 2350 50 / 50 Oral 300 / 300 Output: Urine 525 / 525 Estimated Blood Loss 600 / 600 Other: Urine Color Yellow Urine Appearance Clear Urine Odor Normal Comment pt states he wears depends at home during the night for urine incontinence due to not easily awakening after PM medications Emesis Description None Voiding Methods Toilet Urinal Data Completed and Pending Labs on day of discharge: Labs from last 24 hours 04/02/24 06:35 WBC 14.95 H RBC 4.21 L Hgb 12.5 L Hct 36.9 L MCV 88 MCH 29.7 MCHC 33.9 RDW 12.2 Plt Count 251 MPV 9.6 Sodium 141 Potassium 4.0 Chloride 106 Carbon Dioxide 28.6 Anion Gap 6.4 BUN 18 Creatinine 0.9 Est GFR (CKD-EPI 2020) 93.61 Glucose 122 H Calcium 8.5 PFSH All Active Problems (Updated 04/01/24 @ 08:36 by Diallo Ugalde RN) History of total bilateral knee replacement (Acute ~04/01/24) COPD (chronic obstructive pulmonary disease) (Chronic) SANDRA (obstructive sleep apnea) (Chronic) CPAP Obesity (Chronic) Peripheral neuropathy (Acute) Asthma (Chronic) Rupture of right proximal biceps tendon (Acute) Rotator cuff tear, right (Acute) Traumatic rupture of right distal biceps tendon (Acute ~08/03/23) Medical History (Updated 04/01/24 @ 08:36 by Diallo Ugalde RN) Vitamin D deficiency GERD (gastroesophageal reflux disease) Anxiety Depression Allergic rhinitis Surgical History (Updated 04/01/24 @ 08:35 by Diallo Ugalde RN) H/O eye surgery bilat Carpal tunnel syndrome on right Fracture of thumb, right, closed History of bariatric surgery (2014) gastric sleeve Social History Smoking/Tobacco Use Status: Former Tobacco Use Smoking risk assessment performed?: Yes Alcohol Intake: current Alcohol Intake frequency: a few times a week Drug use: Never Substance use type: does not use Housing: house Current gender identity: male Do you feel safe at home: Yes Do you feel safe in your relationship?: Yes Time Spent with Patient Time Spent with Patient: <45 minutes Time was spent: preparing to see the patient(eg.review tests), ordering medications,tests, procedures, indepentently interpreting results and counseling the patient
--- NOTE | 2024-04-02 11:14 | CHAPLAIN ---
Louie had bilateral knee replacement surgery and was waiting with his for his discharge papers when I visited. He was very pleasant and easily engaged in conversation. 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. Louie said he waited for a long time to have his knees replaced, so he's been in a great deal of pain. He will have a shoulder operated on in the next year or so, he said. I explained my role and offered support.
== END 2024-04-02 11:31 | disposition home or self-care (01) ==
LOC: SUR 07:27 → MS 04-02 09:15
PROVIDERS: Admitting Provider Student in an Organized Health Care Education/Training Program; Visit Provider Student in an Organized Health Care Education/Training Program
PROC: 0SRC0JZ Replacement of Right Knee Joint with Synthetic Substitute, Open Approach (ICD-10-PCS; CPT 27447; principal; 2024-04-01 09:15)
DX: M17.0 Bilateral primary osteoarthritis of knee (principal); J44.9 Chronic obstructive pulmonary disease, unspecified; Z98.84 Bariatric surgery status; G47.33 Obstructive sleep apnea (adult) (pediatric); E66.9 Obesity, unspecified; Z68.41 Body mass index [BMI] 40.0-44.9, adult; G62.9 Polyneuropathy, unspecified; K21.9 Gastro-esophageal reflux disease without esophagitis; E55.9 Vitamin D deficiency, unspecified; F32.A Depression, unspecified; F41.9 Anxiety disorder, unspecified
CPT/HCPCS: 27447; 36415; 76942; 80048; 85027; 96365; 96366; 97162; 97530; C1776; C9290; G0378; J0665; J0690; J1100; J2001; J2250; J2405; J2704; J3010; J8540

== ENCOUNTER 2024-04-16 13:38 | Outpatient (CLI) | payer OTHER, SELFPAY ==
--- NOTE | 2024-04-16 11:18 | DI.RAD_ITS ---
Exam(s) XR KNEE LT 1V XR STANDING ALIGNMENT XR KNEE RT 1V EXAM: XR STANDING ALIGNMENT CLINICAL HISTORY: 1st post op S/P BILAT TKAs. TECHNIQUE: 2D digital imaging was performed. Standing AP views were performed from the pelvis throu gh the ankles. COMPARISON: CR XR STANDING ALIGNMENT from 03/17/2024 CR XR KNEE RT 1V from 04/16/2024 FINDINGS: BONES: No acute fracture is present. No bony destructive lesion is seen. Leg length discrepancy: None JOINTS: Knees: Patient is now status post placement of bilateral total knee prostheses. The alignm ent appears satisfactory. No abnormal surrounding lucencies. The ankle joints are unremarkable. The hip joints are unremarkable. SOFT TISSUE: Normal. IMPRESSION: Status post placement of bilateral total knee prostheses No significant leg length discrepancy. DATA REPOSITORY: RADIATION DOSE DELIVERED:
== END 2024-04-16 13:39 | disposition home or self-care (01) ==
LOC: DIORS 13:38
PROVIDERS: Visit Provider Physician Assistant
DX: Z96.653 Presence of artificial knee joint, bilateral (principal)
CPT/HCPCS: 73560; 77073

== ENCOUNTER 2024-06-25 11:01 | Emergency (ER) | payer OTHER, SELFPAY ==
[2024-06-25 11:02] VITALS: BP 146/93; PULSE 58; RESP 18; TEMP 36.6
--- NOTE | 2024-06-25 11:32 | ED.GENADUL_ITS ---
Discharge Plan Disposition Patient Disposition: Home Condition: Stable Discharge Details Clinical Impression: Sprain of left shoulder, Fullness of supraclavicular fossa Primary Care Provider: None,None ED Provider: Ayden Matt Home Meds and New Rx's Prescriptions: Continued duloxetine 30 mg capsule,delayed release(DR/EC) 60 mg PO DAILY cholecalciferol (vitamin D3) 75 mcg (3,000 unit) tablet 25 mcg PO DAILY carboxymethylcellulose sodium 0.5 % drops 1 drp ophthalmic (eye) HS fluticasone propionate [Allergy Relief (fluticasone)] 50 mcg/actuation spray,suspension 1 spray intranasal DAILY Rx Instructions: administer into each nostril melatonin 5 mg tablet 10 mg PO HS omeprazole 20 MG capsule,delayed release(DR/EC) 20 mg PO DAILY albuterol sulfate [ProAir HFA] 8.5 GM HFA aerosol inhaler 2 puff Inhalation PRN PRN trazodone 50 mg Tablet 50 mg PO HS celecoxib 200 mg capsule 200 mg PO BID PRN (Reason: pain) Qty: 60 1RF acetaminophen 500 mg tablet 1,000 mg PO Q8H PRN (Reason: pain) Qty: 90 3RF Discharge Instructions Instructions: Shoulder Sprain ED Additional Instructions: Please follow-up with your primary care physician regarding swelling of your left supraclavicular fossa. Additional outpatient diagnostic testing may be necessary should this persist. Please use sling over the next 1 to 2 weeks. Remove your arm from sling a few times a day to perform pendulum exercises as reviewed. Please follow-up with your primary care physician. Return to the Emergency Department immediately for any worsening or new concerning symptoms. Discharge Data Discharge Date/Time-TO BE ENTERED AT DEPARTURE: 06/25/24 13:31 HPI General Mode of arrival: ambulatory . Date/Time Provider Initiated Documentation: 06/25/24 11:31 . Limitations to Documentation: no limitations . Information obtained by: patient . HPI Narrative: 69-year-old male here with chief complaint of left shoulder pain. Patient notes around 9:00 this morning he had a mechanical slip and fall in mud and landed on his left shoulder. He has had pain in his shoulder since the fall. No associated numbness tingling. No other injury sustained. No neck pain. Related Data Home Medications ?Medication ?Instructions ?Recorded ?Confirmed albuterol sulfate 90 mcg/actuation 2 puff inhalation PRN PRN 12/16/15 06/25/24 aerosol inhaler (ProAir HFA) omeprazole 20 mg capsule,delayed 20 mg PO DAILY 12/16/15 06/25/24 release trazodone 50 mg tablet 50 mg PO HS 09/11/22 06/25/24 cholecalciferol (vitamin D3) 75 25 mcg PO DAILY 10/08/23 06/25/24 mcg (3,000 unit) tablet carboxymethylcellulose sodium 0.5 1 drp ophthalmic (eye) HS 11/13/23 06/25/24 % eye drops fluticasone propionate 50 1 spray intranasal DAILY 11/13/23 06/25/24 mcg/actuation nasal spray,suspension (Allergy Relief (fluticasone)) melatonin 5 mg tablet 10 mg PO HS 11/13/23 06/25/24 duloxetine 30 mg capsule,delayed 60 mg PO DAILY 03/17/24 06/25/24 release acetaminophen 500 mg tablet 1,000 mg (2 x 500 mg) PO Q8H PRN 04/02/24 06/25/24 pain #90 tabs celecoxib 200 mg capsule 200 mg PO BID PRN pain #60 caps 04/02/24 06/25/24 Previous Rx's ?Medication ?Instructions ?Recorded acetaminophen 500 mg tablet 1,000 mg (2 x 500 mg) PO Q8H PRN 04/02/24 pain #90 tabs celecoxib 200 mg capsule 200 mg PO BID PRN pain #60 caps 04/02/24 Allergies Allergy/AdvReac Type Severity Reaction Status Date / Time atorvastatin Allergy Other (See Verified 06/25/24 11:06 Comment) General Stated Complaint: Orthopedic EBONY: 4 Review of Systems Cardiovascular Cardiovascular: Denies chest pain and Denies dyspnea Respiratory Respiratory: Denies dyspnea Exam Const General: cooperative and no acute distress [facility] Mouth: moist mucous membranes Eyes Conjunctivae: normal conjunctivae Sclera: normal sclerae Neck Neck: trachea midline and supple Chest Other: Supraclavicular swelling noted Resp Auscultation: clear to auscultation bilaterally, no rales, no rhonchi and no wheezes Cardio Rate: regular rate and not tachycardic Rhythm: regular rhythm Skin General skin exam: no rashes or lesions noted Neuro General: patient alert, patient awake and tone normal Extrem General: no edema Left upper extremity: shoulder/upper arm Details: tenderness Location: of the proximal humerus and abnormal ROM Details: pain with active ROM Details: in ABduction and elbow/forearm Details: normal to inspection Other: no tenderness clavicle left Course Vital Signs Vital signs: Vital Signs Temperature 36.6 C 06/25/24 11:02 Pulse 58 L 06/25/24 11:02 Respiratory Rate 18 06/25/24 11:02 Blood Pressure 146/93 H 06/25/24 11:02 Temperature 36.6 C 06/25/24 11:02 Temperature Source Oral 06/25/24 11:02 Pulse 58 L 06/25/24 11:02 Respiratory Rate 18 06/25/24 11:02 Respiratory Effort Normal 06/25/24 11:19 Blood Pressure 146/93 H 06/25/24 11:02 Blood Pressure Position Sitting 06/25/24 11:02 Oxygen Delivery Method Room Air 06/25/24 11:02 Oxygen Flow Rate 0 06/25/24 11:02 Pain Level 10 06/25/24 11:19 Medical Decision Making 1135 --69-year-old male presents after mechanical slip and fall this morning w ith impact to his left posterior shoulder, now with persistent shoulder pain and pain with movement of the shoulder. Patient is neurovascular intact distally. Concern for contusion versus rotator cuff injury versus fracture proximal humerus. Plan to obtain x-ray of the left shoulder. Patient does have notable left supraclavicular swelling. Consider lymphadenopathy. I discussed this with the patient and recommended chest x-ray. Patient provided informed refusal and notes she has had significant number of recent chest x-rays. I have encouraged him to follow-up and discuss this with his primary care physician. -- X-ray of the left shoulder was reviewed interpreted by radiology:No acute fracture or dislocation. Suspect contusion versus shoulder sprain. Plan for shoulder immobilization with sling. This provided the patient. Results were discussed with the patient. Usual customary discharge instructions reviewed. Quality:SDOH Health Related Social Needs: Health related social needs material hardship, food in security, transpo insecurity, personal safety PFSH All Active Problems (Updated 06/25/24 @ 13:05 by Ayden Matt MD) Fullness of supraclavicular fossa (Acute) Sprain of left shoulder (Acute) COPD (chronic obstructive pulmonary disease) (Chronic) SANDRA (obstructive sleep apnea) (Chronic) CPAP Obesity (Chronic) Peripheral neuropathy (Acute) Asthma (Chronic) Rupture of right proximal biceps tendon (Acute) Rotator cuff tear, right (Acute) Traumatic rupture of right distal biceps tendon (Acute ~08/03/23) Medical History Vitamin D deficiency GERD (gastroesophageal reflux disease) Anxiety Depression Allergic rhinitis Surgical History History of total bilateral knee replacement (04/01/24) H/O eye surgery bilat Carpal tunnel syndrome on right Fracture of thumb, right, closed History of bariatric surgery (2013) gastric sleeve Social History Smoking/Tobacco Use Status: Former Tobacco Use Smoking risk assessment performed?: Yes Alcohol Intake: current Alcohol Intake frequency: a few times a week Drug use: Never Substance use type: does not use Housing: house Current gender identity: male Do you feel safe at home: Yes Do you feel safe in your relationship?: Yes
--- NOTE | 2024-06-25 11:59 | DI.RAD_ITS ---
Exam(s) XR SHOULDER LT COMPLETE 2+V EXAM: XR SHOULDER LT COMPLETE 2+V CLINICAL HISTORY: fall, pain. TECHNIQUE: 2D digital imaging was performed of the left shoulder. Five images were obtained. AP, G rashey, Y-view and axillary views were obtained. COMPARISON: No exams were available for comparison FINDINGS: BONES: No acute fracture is present. No bony destructive lesion is seen. JOINTS: No dislocation present. There are old healed left rib fractures. There are mild degenerative changes seen at the acromioclavicular and glenohumeral joints. SOFT TISSUE: Normal. IMPRESSION: No acute fracture or dislocation. DATA REPOSITORY: RADIATION DOSE DELIVERED:
== END 2024-06-25 13:31 | disposition home or self-care (01) ==
PROVIDERS: Emergency Provider Student in an Organized Health Care Education/Training Program
DX: S43.402A Unspecified sprain of left shoulder joint, initial encounter (principal); Z98.84 Bariatric surgery status; Z87.891 Personal history of nicotine dependence; W01.0XXA Fall on same level from slipping, tripping and stumbling without subsequent striking against object, initial encounter; Y93.01 Activity, walking, marching and hiking; Y92.89 Other specified places as the place of occurrence of the external cause
CPT/HCPCS: 99283; 73030